=== PATIENT | male | born 1955 | race Caucasian/White ===

== ENCOUNTER → 2016-07-30 | Outpatient (REF) | payer OTHER ==
[~2016-07-30] MED LIST: /AMLO25TA PO; /PANT40TA PO; /TAMS4CA PO; ALDA25TA PO; ASPI81TA85 PO; BUDE3CAP PO; DIPH25CA PO; HYDR12.55 PO; NEUR300C PO; PENT500C PO; PERC5TAB6 PO; PERCOCET PO; POTAGRA83 PO; TYLE325T5 PO; ZYLO300T PO; ZYLO300T4 PO; [UNRECOGNIZED DRUG - CODE] PO
== END ==
LOC: M LAB REF 11:27
PROVIDERS: ATTEND Internal Medicine Medical Oncology
DX: C18.0 Malignant neoplasm of cecum (principal); C78.4 Secondary malignant neoplasm of small intestine

== ENCOUNTER → 2017-03-06 | Outpatient (REF) | payer MEDICARE, MEDICAID ==
[~2017-03-06] MED LIST changes: +PERC5TAB12 PO; -PERC5TAB6 PO
== END ==
LOC: M LAB REF 12:46
PROVIDERS: ATTEND Internal Medicine Medical Oncology
DX: C18.0 Malignant neoplasm of cecum (principal)

== ENCOUNTER → 2017-03-19 | Outpatient (CLI) | payer MEDICARE, MEDICAID ==
--- NOTE | 2017-03-22 09:56 | REP ---
Whole body radionuclide PET CT scan: Studies performed for restaging of colon carcinoma. Comparison is the PET CT scan dated 01/31/2016. Whole-body scanning is performed from skull base to the upper thighs. Neck and supraclavicular areas: There are no hypermetabolic foci. Chest: There are no hypermetabolic foci. Abdomen, pelvis and upper thighs: There are no hypermetabolic foci. Impression: Negative whole-body PET CT scan. There are no hypermetabolic foci. This is unchanged from the prior study. The study is performed with 10 mCi of F 18 FDG. Signed by Joseph Barlow MD 03/22/2017 09:48 A
== END ==
LOC: M PLARAD 08:27
PROVIDERS: ATTEND Internal Medicine Medical Oncology
DX: C18.9 Malignant neoplasm of colon, unspecified (principal)
CPT/HCPCS: 78815; A9552

== ENCOUNTER → 2017-03-28 | Outpatient (REF) | payer MEDICARE, MEDICAID | LOC: M LAB REF 12:49 | PROVIDERS: ATTEND Internal Medicine Medical Oncology | DX: C18.0 Malignant neoplasm of cecum (principal) ==

== ENCOUNTER 2017-05-10 12:37 | Inpatient (IN) | payer MEDICARE, MEDICAID ==
[~2017-05-10] VITALS: Ht 165.1 cm; Wt 74.8 kg
[2017-05-10 15:11] LABS: BASO % 0.2 % (0.0-1.0); EOS % 0.2 % (0.0-3.0); IMMATURE GRANULOCYTE % 0.5 % (0-0); LYMPH % 10.6 % (24.0-44.0); MEAN CORPUSCULAR HEMOGLOBIN 30.2 pg (27.0-33.0); MEAN CORPUSCULAR HGB CONC 35.2 g/dl (32.0-36.5); MEAN CORPUSCULAR VOLUME 85.6 fl (80.0-96.0); MONO % 10.6 % (0.0-5.0); NEUTROPHILS # 7.4 10^3/uL (1.8-7.7); NEUTROPHILS % 77.9 % (36.0-66.0); PLATELET COUNT, AUTOMATED 255 10^3/uL (150-450); RED CELL DISTRIBUTION WIDTH 13.2 % (11.5-14.5); WHITE BLOOD COUNT 9.5 10^3/uL (4.0-10.0)
[2017-05-10 15:35] LABS: ALBUMIN/GLOBULIN RATIO 1.05 (1.00-1.93); BILIRUBIN,TOTAL 1.5 MG/DL (0.2-1.0); CALCIUM LEVEL 9.1 MG/DL (8.8-10.2); CREATININE FOR GFR 2.03 MG/DL (0.70-1.30); GLOMERULAR FILTRATION RATE 35.8 (>49); POTASSIUM SERUM 2.6 MEQ/L (3.5-5.1); TOTAL PROTEIN 7.8 GM/DL (6.4-8.2)
[2017-05-10 15:55] LABS: MAGNESIUM LEVEL 2.5 MG/DL (1.8-2.4)
[2017-05-10] MEDS ORDERED: KCL 10MEQ IN 100ML SWI (KRUN) 10 MEQ in APPROPRIATE DILUENT 1 EA IV ONE ×6 (16:00→23:00)
[2017-05-10] MEDS ORDERED: POTASSIUM CHLORIDE INJ 20 MEQ in D5W/LR 1,000 ML IV SCH (16:30)
[2017-05-10] MEDS ORDERED: GASTROGRAFIN SOLUTION 30ML (Q9963) PO ONE (17:10)
[2017-05-10] MEDS ORDERED: ALDA25TA PO (17:14)
[2017-05-10] MEDS ORDERED: GASTROGRAFIN SOLUTION 30ML PO ONE (17:40)
[2017-05-10] MEDS ORDERED: ONDANSETRON 4MG/2ML VIAL (J2405) IV PRN (17:45)
[2017-05-10] MEDS ORDERED: NS 1,000 ML IV SCH (18:00)
--- NOTE | 2017-05-10 18:39 | HPEPDOC ---
General Date of Admission May 10, 2017 at 16:40 Primary Care Physician: Maxim Orlando [facility] Attending Physician: CLOVIS SANTIAGO DO Chief Complaint The patient is a 61-year-old male admitted with a reason for visit of Acute Kidney Injury,Hyperkalemia. Source: Patient, RN notes reviewed, Old records Exam Limitations: No limitations Timing/Duration: Week(s) Associated Symptoms: Loss of appetite, Nausea History of Present Illness Mr. Almonte is a 61-year-old male who presents to [facility] Emergency Department with constipation. He is accompanied by his niece. 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 Patient reports two weeks of constipation. He states that prior to two weeks ago he was having regular bowel movements going a couple times a day. He feels that these symptoms actually started towards the end of the summer/early fall, but have been getting worse now to the point that he is unable to a have bowel movement at all. No diarrhea. He would occasionally have to strain to produce a bowel movement. His most recent bowel movement two weeks ago was hard, but without visible blood or mucous. He would also have crampy abdominal pain, located mostly in the left upper quadrant that he describes as a tightening with increased bowel sounds. The abdominal pain would subside with bowel movements. Over the last two weeks he has also been feeling quite nauseated, but without production of vomit. Has also noticed a ten pound weight loss over the last two weeks although he has has not be eating or drinking as much as usual. Patient is not currently on chemotherapy. He completed chemotherapy in 2016. No radiation. Emergency Department evaluation reveals acute kidney injury likely secondary to dehydration. Potassium is low at 2.6. Intravenous supplementation was provided. Imaging obtained revealed ileus vs. partial vs. small bowel obstruction. Official report is pending at time of H&P. Hospitalist service was consulted and patient was admitted for further medical management. Home Medications Scheduled Allopurinol (Zyloprim) 300 Mg Tab, 300 MG PO DAILY, (Reported) Hctz/Spironolactone (Spironolactone/Hydrochlor 25-25 mg) 1 Ea Tab, 1 EA PO DAILY , (Reported) Allergies Coded Allergies: No Known Drug Allergy (Verified Allergy, Unknown, 03/20/17) Past Medical History Medical History 1. Poorly differentiated mucinous adenocarcinoma with signet-ring cells morphology involving the small bowel, cecum, and appendix 2. Hypertension 3. Gout 4. Renal calculous 5. History of small bowel obstruction 6. Diverticulosis 7. Recto-sigmoid stricture 8. Crohn's disease Surgical History 1. Exploratory laparotomy 2. Lysis of adhesions 3. Ileocolic resection with ileocolonic anastomosis 4. Right IJ [id number] 5. Colonoscopy x2 Family History Father: , 58, pancreatic carcinoma Mother: , 74, Alzheimer's disease Siblings: - Brother: Alive, 57, alcoholic cirrhosis - Brother: Alive, 61, COPD, aneurysm - Sister: Alive, 50, unhealthy, "hypochondriac" Social History Lives independently. Single. No pets. 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 Has no children. Denies former or current use of tobacco, EtOH, or illicit drugs. No history. Has traveled to [place] and [place]. Review of Symptoms Constitutional: Reports: Weight Loss (10 pounds in 2 weeks), Denies: Chills, Fever, Night Sweats, Weakness Eyes: Reports: Vision change (Blurry vision noted over the last month) ENT: Denies: Head Aches, Dysphagia, Sinus Congestion, Post Nasal Drip, Sore Throat, Epistaxis Skin: Denies: Rash, Lesions, Bruising Pulmonary: Denies: Dyspnea, Cough, Pleuritic Chest Pain Cardiovascular: Denies: Chest Pain, Palpitations, Orthopnea, Paroxysmal Noc. Dyspnea, Edema, Lt Headedness Gastrointestinal: Reports: Nausea, Abdominal Pain (LUQ, tightness, with hyperactive bowel sounds), Constipation, Denies: Vomiting, Diarrhea, Melena, Hematochezia Genitourinary: Denies: Dysuria, Frequency, Incontinence, Hematuria, Retention Hematologic: Denies: Bruising, Petecchia, Purpura, Enlarged Lymph Nodes Endocrine: Denies: Polydipsia, Polyphagia, Polyuria Musculoskeletal: Reports: Back Pain (Occasionally), Denies: Neck Pain, Joint Pain, Muscle Pain Neurological: Denies: Weakness, Numbness Physical Examination General Exam: Positive: Alert, Cooperative, No Acute Distress Eye Exam: Positive: PERRLA, Conjunctiva & lids normal, EOMI, Negative: Sclera icteric, Ptosis ENT Exam: Positive: Atraumatic, Mucous membr. moist/pink, Pharynx Normal, Tongue Midline, Negative: Pharyngeal Edema, Nares Patent Neck Exam: Positive: Supple, +2 carotid pulse wo bruit, Negative: JVD, thyromegaly, Lymphadenopathy Chest Exam: Positive: Clear to auscultation, Normal air movement Heart Exam: Positive: Rate Normal, Regular Rhythm, Normal S1, Normal S2, Negative: Gallops, Murmurs, Rubs Abdomen Exam: Positive: BS Hyperactive (LUQ), Soft, Negative: Hepatospenomegaly, Mass, Hernia Extremity Exam: Positive: Normal pulses, Negative: Clubbing, Cyanosis, Edema, Tenderness, Swelling Skin Exam: Negative: Rash Neuro Exam: Positive: Normal Speech, Cranial Nerves 3-12 NL Psych Exam: Positive: Oriented x 3 Other physical findings Abdominal x-ray IMPRESSION: Official report pending Vital Signs Vital Signs Date Time Temp Pulse Resp B/P (MAP) Pulse Ox O2 Delivery O2 Flow Rate FiO2 05/10/17 17:26 116/89 (98) 05/10/17 17:22 76 96 05/10/17 12:37 97.6 16 Room Air Height (in): 65 Weight (kg): 74.5 BMI (kg): 27.3 Laboratory Data Labs 24H Laboratory Tests 2 05/10/17 14:08: Urine Appearance HAZY, Urine Color NANCY, Urine pH 5.0, Urine Specific Richards 1.023, Urine Protein 1+H, Urine Glucose (UA) NEGATIVE, Urine Ketones NEGATIVE, Urine Urobilinogen 2.0H, Urine Bilirubin NEGATIVE, Urine Leukocyte Esterase NEGATIVE, Urine Blood NEGATIVE, Urine Nitrite NEGATIVE, Urine WBC (Auto) 4H, Urine RBC (Auto) 1, Urine Hyaline Casts (Auto) 4, Urine Bacteria (Auto) NEGATIVE , Urine Squamous Epithelial Cells 0, Urine Mucus (Auto) SMALL, Urine Sperm (Auto ) SMALLH 05/10/17 15:05: Immature Granulocyte % (Auto) 0.5H, White Blood Count 9.5, Red Blood Count 5.90 , Hemoglobin 17.8, Hematocrit 50.5, Mean Corpuscular Volume 85.6, Mean Corpuscular Hemoglobin 30.2, Mean Corpuscular Hemoglobin Concent 35.2, Red Cell Distribution Width 13.2, Platelet Count 255, Neutrophils (%) (Auto) 77.9H, Lymphocytes (%) (Auto) 10.6L, Monocytes (%) (Auto) 10.6H, Eosinophils (%) (Auto ) 0.2, Basophils (%) (Auto) 0.2, Neutrophils # (Auto) 7.4, Lymphocytes # (Auto) 1.0L, Monocytes # (Auto) 1.0H, Eosinophils # (Auto) 0.0, Basophils # (Auto) 0.0 , Immature Granulocyte # (Auto) 0.1H, Nucleated Red Blood Cells % (auto) 0.0, Anion Gap 11, Glomerular Filtration Rate 35.8L, Blood Urea Nitrogen 37H, Creatinine 2.03H, Sodium Level 136, Potassium Level 2.6*L, Chloride Level 92L, Carbon Dioxide Level 33H, Calcium Level 9.1, Aspartate Amino Transf (AST/SGOT) 24, Alanine Aminotransferase (ALT/SGPT) 23, Alkaline Phosphatase 90, Total Bilirubin 1.5H, Total Protein 7.8, Albumin 4.0, Magnesium Level 2.5H, Albumin/ Globulin Ratio 1.05 CBC/BMP Laboratory Tests 05/10/17 15:05 Red Blood Count 5.90, Mean Corpuscular Volume 85.6, Mean Corpuscular Hemoglobin 30.2, Mean Corpuscular Hemoglobin Concent 35.2, Red Cell Distribution Width 13.2 , Neutrophils (%) (Auto) 77.9 H, Lymphocytes (%) (Auto) 10.6 L, Monocytes (%) ( Auto) 10.6 H, Eosinophils (%) (Auto) 0.2, Basophils (%) (Auto) 0.2, Neutrophils # (Auto) 7.4, Lymphocytes # (Auto) 1.0 L, Monocytes # (Auto) 1.0 H, Eosinophils # (Auto) 0.0, Basophils # (Auto) 0.0, Calcium Level 9.1, Aspartate Amino Transf (AST/SGOT) 24, Alanine Aminotransferase (ALT/SGPT) 23, Alkaline Phosphatase 90, Total Bilirubin 1.5 H, Total Protein 7.8, Albumin 4.0 Assessment/Plan Attending Note: I have independently examined this patient and all aspects of the exam and treatment decisions have been discussed with the resident. A member of the hospitalist staff will continue to follow this patient through discharge. Plan / VTE VTE Prophylaxis Ordered?: Yes (TEDs, sequentials, knee high compression) Plan Plan 1. Constipation: Patient has been unable to have a bowel movement in two weeks with associated weight loss. Has a history of small bowel adenocarcinoma. Chemotherapy completed in 2016. Never received radiation. Recent colonoscopy on 03/25/17 was completed with a pediatric colonoscope due to a recto-sigmoid stricture. Recommended obtaining barium enema. Unable to complete due to facility restrictions. Obtaining CT abdomen and pelvis with oral contrast only due to acute renal failure. Consulted general surgery. NPO. Morphine, as needed for pain. Zofran for nausea. Mechanical DVT prophylaxis only at this time as patient may go for surgery. Could consider initiating pharmacological DVT prophylaxis if patient not going for surgery. 2. Hypokalemia: Obtain EKG. Admit to medical-surgical unit with telemetry monitoring. Replete potassium. Patient's nausea and weakness could be manifestations of hypokalemia. Monitor BMP. 3. Acute renal failure: Likely as a result of decreased oral intake or as a result of hypokalemia. Providing NS @100mLs/hr. 4. Hypertension: Continue patient's HCTZ and Spironolactone. Blood pressure is stable at the present time. 5. Gout: Holding Allopurinol in light of acute renal failure. Could consider restarting once renal function improves. Disposition Admit: Medical-surgical unit with telemetry Anticipated hospitalization: > 2 nights Attending: Dr. Crow Mounting Machine Operator: Dr. Morin, general surgery IVF: Initiate (NS @100mLs/hr) Diet: Make NPO Activity: Continue Current (Activity as tolerated) Diagnostics: Check Labs, Repeat Labs in AM, CT (Abdomen and pelvis with oral contrast) Anticipated Discharge: Home DEA CONTRERAS DO May 10, 2017 18:39 CLOVIS SANTIAGO DO May 20, 2017 18:01
[2017-05-10 18:46] LABS: INR 1.22
--- NOTE | 2017-05-10 20:00 | REPUSA ---
CT of the abdomen and pelvis without contrast Clinical statement: Pain. Technique: Multiple axial CT images were obtained from the base of the lungs to the floor of the pelv is utilizing 5 mm axial slices without administration of contrast. Coronal and sagittal reconstructio ns were also obtained. Comparison: 04/02/2017. Findings: Chest: The visualized lung bases are clear. Abdomen: The kidneys are normal in size bilaterally. There is no evidence of hydronephrosis or nephro lithiasis. Several small low attenuation lesions are seen within the liver. The spleen, pancreas, gal lbladder and adrenal glands are unremarkable. The aorta demonstrates normal caliber and contour. Ther e is no abdominal lymphadenopathy. There is moderate amount of ascites in the perihepatic and perispl enic regions. Pelvis: There is moderate small bowel fluid distention noted, proximal to the site of narrowing in th e proximal ileum. This is located in the right anterior lower pelvis. Mild mesenteric inflammatory ch anges are seen at this site. There is mild amount of stool within the colon. The urinary bladder is w ithin normal limits. There is no pelvic lymphadenopathy or ascites. The other pelvic structures appea r unremarkable. Bones: There are no suspicious osseous abnormalities seen. Impression: 1. Moderate grade small bowel obstruction with site of narrowing demonstrated in the proximal ileum i n the right lower quadrant of the abdomen. Mild mesenteric inflammatory stranding is seen at the site . It is uncertain whether this is secondary to an acute inflammatory process or surgical changes from adhesions. Follow-up is recommended as clinically indicated. 2. No evidence of hydronephrosis or nephrolithiasis. 3. Small to moderate amount of ascites in the upper quadrants of the abdomen bilaterally. 4. Several simple cysts within the liver. ER charge nurse was notified of these findings at 7:55 PM on 05/10/2017.
[2017-05-10 20:05] VITALS: BP 132/82
[2017-05-10] MEDS: MORPHINE 2 MG/ML 1ML SYRINGE IV PRN (21:56)
[2017-05-10 22:27] LABS: ALBUMIN 3.6 GM/DL (3.2-5.2); CALCIUM LEVEL 8.7 MG/DL (8.8-10.2); CREATININE FOR GFR 1.5 MG/DL (0.70-1.30); GLOMERULAR FILTRATION RATE 50.8 (>49); PHOSPHORUS LEVEL 2.9 MG/DL (2.5-4.9); POTASSIUM SERUM 2.5 MEQ/L (3.5-5.1)
[2017-05-10] MEDS ORDERED: POTASSIUM CHLORIDE INJ 40 MEQ in NS 1,000 ML IV SCH (22:45)
[2017-05-10] MEDS ORDERED: POTASSIUM CHLORIDE 10 MEQ SR TABLET PO ONE (22:45)
[2017-05-11] MEDS ORDERED: KCL 10MEQ IN 100ML SWI (KRUN) 10 MEQ in APPROPRIATE DILUENT 1 EA IV ONE ×4 (01:00)
[2017-05-11] MEDS: MORPHINE 2 MG/ML 1ML SYRINGE IV PRN ×3 (01:21→16:52)
[2017-05-11] MEDS: KCL 40MEQ in NS 1000ML 1,000 ML IV SCH ×2 (04:24→08:28)
[2017-05-11 04:38] LABS: BASO % 0.3 % (0.0-1.0); EOS % 0.3 % (0.0-3.0); IMMATURE GRANULOCYTE % 0.4 % (0-0); LYMPH # 0.9 10^3/uL (1.5-4.5); MEAN CORPUSCULAR HEMOGLOBIN 30.2 pg (27.0-33.0); MEAN CORPUSCULAR HGB CONC 35.5 g/dl (32.0-36.5); MONO # 0.9 10^3/uL (0.0-0.8); MONO % 11.6 % (0.0-5.0); NEUTROPHILS # 5.8 10^3/uL (1.8-7.7); NEUTROPHILS % 75.4 % (36.0-66.0); PLATELET COUNT, AUTOMATED 207 10^3/uL (150-450); RED CELL DISTRIBUTION WIDTH 13.2 % (11.5-14.5); WHITE BLOOD COUNT 7.7 10^3/uL (4.0-10.0)
[2017-05-11 04:51] LABS: CALCIUM LEVEL 8.8 MG/DL (8.8-10.2); CREATININE FOR GFR 1.48 MG/DL (0.70-1.30); GLOMERULAR FILTRATION RATE 51.6 (>49)
[2017-05-11 05:00] LABS: POTASSIUM SERUM 3.5 MEQ/L (3.5-5.1)
[2017-05-11 06:00] VITALS: BP 109/66
--- NOTE | 2017-05-11 06:56 | REP ---
REASON: History of small bowel obstruction. COMPARISON: 09/23/2014. Note is again made of multiple dilated gas filled small bowel loops particularly in the left upper quadrant. There is gas and stool in the rectum. IMPRESSION: Ileus versus partial SBO. Correlate clinically. Signed by Eduar Qureshi DO 05/11/2017 08:55 A
[2017-05-11 08:27] VITALS: BP 123/78
[2017-05-11] MEDS: amLODIPine 10 MG TAB PO SCH (08:28)
[2017-05-11] MEDS ORDERED: ALLOPURINOL 300 MG TAB PO SCH (09:00)
[2017-05-11] MEDS ORDERED: hydroCHLOROthiazide 25 MG TAB PO SCH (09:00)
[2017-05-11] MEDS ORDERED: SPIRONOLACTONE 25 MG TAB PO SCH (09:00)
--- NOTE | 2017-05-11 10:20 | IPNPDOC ---
Subjective Date Seen The patient was seen on 05/11/17. Subjective Chief Complaint/HPI The patient is a 61-year-old male admitted with a reason for visit of Acute Kidney Injury,Hyperkalemia. Events since last encounter Says that abdominal pain is a little better. Still has nausea. No bowel movements for 2 weeks , Has not passed gas yet . No fever or chills. No chest pain or SOB . Objective Physical Examination General Exam: Positive: Alert, Cooperative, No Acute Distress Eye Exam: Positive: PERRLA, Conjunctiva & lids normal, EOMI, Negative: Sclera icteric, Ptosis ENT Exam: Positive: Atraumatic, Mucous membr. moist/pink, Pharynx Normal, Tongue Midline, Negative: Pharyngeal Edema, Nares Patent Neck Exam: Positive: Supple, +2 carotid pulse wo bruit, Negative: JVD, thyromegaly, Lymphadenopathy Chest Exam: Positive: Clear to auscultation, Normal air movement Heart Exam: Positive: Rate Normal, Regular Rhythm, Normal S1, Normal S2, Negative: Gallops, Murmurs, Rubs Abdomen Exam: Positive: BS Hyperactive (LUQ), Soft, Negative: Hepatospenomegaly, Mass, Hernia Extremity Exam: Positive: Normal pulses, Negative: Clubbing, Cyanosis, Edema, Tenderness, Swelling Skin Exam: Negative: Rash Neuro Exam: Positive: Normal Speech, Cranial Nerves 3-12 NL Psych Exam: Positive: Oriented x 3 Assessment /Plan Problems (1) Small bowel obstruction Status: Acute Problem Text: will continue the patient NPO , IVF. Surgery is following. (2) TON (acute kidney injury) Status: Acute Response to Treatment: Improving Problem Text: Due to poor oral intake . improving with IVF. (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 Had surgery followed by chemotherapy finished in 2016. (4) Stricture of colon Status: Acute Problem Text: Tight stricture was found in the rectosigmoid junction in mar 2017 during colonoscopy . Chance of this being a malignant stricture is high. Work up was being done as any outpatient. (5) Hypertension Status: Chronic (6) Nephrolithiasis Status: Chronic (7) Gout Status: Chronic Response to Treatment: Stable (8) Crohn disease Status: Chronic Response to Treatment: Stable Plan/VTE VTE Prophylaxis Ordered?: Yes (TEDs, sequentials, knee high compression) Plan IVF: Initiate (NS @100mLs/hr) Diet: Make NPO Activity: Continue Current (Activity as tolerated) Diagnostics: Check Labs, Repeat Labs in AM, CT (Abdomen and pelvis with oral contrast) Anticipated Discharge: Home VS, I&O, 24H, Araceli Vital Signs/I&O Vital Signs Date Time Temp Pulse Resp B/P (MAP) Pulse Ox O2 Delivery O2 Flow Rate FiO2 05/11/17 08:28 72 123/78 05/11/17 06:00 97.2 18 95 Room Air Laboratory Data 24H LABS Laboratory Tests 2 05/10/17 14:08: Urine Appearance HAZY, Urine Color NANCY, Urine pH 5.0, Urine Specific [place] 1.023, Urine Protein 1+H, Urine Glucose (UA) NEGATIVE, Urine Ketones NEGATIVE, Urine Urobilinogen 2.0H, Urine Bilirubin NEGATIVE, Urine Leukocyte Esterase NEGATIVE, Urine Blood NEGATIVE, Urine Nitrite NEGATIVE, Urine WBC (Auto) 4H, Urine RBC (Auto) 1, Urine Hyaline Casts (Auto) 4, Urine Bacteria (Auto) NEGATIVE , Urine Squamous Epithelial Cells 0, Urine Mucus (Auto) SMALL, Urine Sperm (Auto ) SMALLH 05/10/17 15:05: Immature Granulocyte % (Auto) 0.5H, White Blood Count 9.5, Red Blood Count 5.90 , Hemoglobin 17.8, Hematocrit 50.5, Mean Corpuscular Volume 85.6, Mean Corpuscular Hemoglobin 30.2, Mean Corpuscular Hemoglobin Concent 35.2, Red Cell Distribution Width 13.2, Platelet Count 255, Neutrophils (%) (Auto) 77.9H, Lymphocytes (%) (Auto) 10.6L, Monocytes (%) (Auto) 10.6H, Eosinophils (%) (Auto ) 0.2, Basophils (%) (Auto) 0.2, Neutrophils # (Auto) 7.4, Lymphocytes # (Auto) 1.0L, Monocytes # (Auto) 1.0H, Eosinophils # (Auto) 0.0, Basophils # (Auto) 0.0 , Immature Granulocyte # (Auto) 0.1H, Nucleated Red Blood Cells % (auto) 0.0, Anion Gap 11, Glomerular Filtration Rate 35.8L, Blood Urea Nitrogen 37H, Creatinine 2.03H, Sodium Level 136, Potassium Level 2.6*L, Chloride Level 92L, Carbon Dioxide Level 33H, Calcium Level 9.1, Aspartate Amino Transf (AST/SGOT) 24, Alanine Aminotransferase (ALT/SGPT) 23, Alkaline Phosphatase 90, Total Bilirubin 1.5H, Total Protein 7.8, Albumin 4.0, Magnesium Level 2.5H, Albumin/ Globulin Ratio 1.05 05/10/17 18:27: Prothrombin Time 15.7H, Prothromb Time International Ratio 1.22 05/10/17 21:49: Anion Gap 11, Glomerular Filtration Rate 50.8, Blood Urea Nitrogen 35H, Creatinine 1.50H, Sodium Level 137, Potassium Level 2.5*L, Chloride Level 96L, Carbon Dioxide Level 30, Calcium Level 8.7L, Albumin 3.6, Phosphorus Level 2.9 05/11/17 04:26: Immature Granulocyte % (Auto) 0.4H, White Blood Count 7.7, Red Blood Count 5.47 , Hemoglobin 16.5, Hematocrit 46.5, Mean Corpuscular Volume 85.0, Mean Corpuscular Hemoglobin 30.2, Mean Corpuscular Hemoglobin Concent 35.5, Red Cell Distribution Width 13.2, Platelet Count 207, Neutrophils (%) (Auto) 75.4H, Lymphocytes (%) (Auto) 12.0L, Monocytes (%) (Auto) 11.6H, Eosinophils (%) (Auto ) 0.3, Basophils (%) (Auto) 0.3, Neutrophils # (Auto) 5.8, Lymphocytes # (Auto) 0.9L, Monocytes # (Auto) 0.9H, Eosinophils # (Auto) 0.0, Basophils # (Auto) 0.0 , Immature Granulocyte # (Auto) 0.0, Nucleated Red Blood Cells % (auto) 0.0, Anion Gap 10, Glomerular Filtration Rate 51.6, Blood Urea Nitrogen 35H, Creatinine 1.48H, Sodium Level 137, Potassium Level 3.5#, Chloride Level 96L, Carbon Dioxide Level 31, Calcium Level 8.8 CBC/BMP Laboratory Tests 05/10/17 15:05 Red Blood Count 5.90, Mean Corpuscular Volume 85.6, Mean Corpuscular Hemoglobin 30.2, Mean Corpuscular Hemoglobin Concent 35.2, Red Cell Distribution Width 13.2 , Neutrophils (%) (Auto) 77.9 H, Lymphocytes (%) (Auto) 10.6 L, Monocytes (%) ( Auto) 10.6 H, Eosinophils (%) (Auto) 0.2, Basophils (%) (Auto) 0.2, Neutrophils # (Auto) 7.4, Lymphocytes # (Auto) 1.0 L, Monocytes # (Auto) 1.0 H, Eosinophils # (Auto) 0.0, Basophils # (Auto) 0.0, Calcium Level 9.1, Aspartate Amino Transf (AST/SGOT) 24, Alanine Aminotransferase (ALT/SGPT) 23, Alkaline Phosphatase 90, Total Bilirubin 1.5 H, Total Protein 7.8, Albumin 4.0 05/10/17 21:49 Anion Gap 11 05/11/17 04:26 Red Blood Count 5.47, Mean Corpuscular Volume 85.0, Mean Corpuscular Hemoglobin 30.2, Mean Corpuscular Hemoglobin Concent 35.5, Red Cell Distribution Width 13.2 , Neutrophils (%) (Auto) 75.4 H, Lymphocytes (%) (Auto) 12.0 L, Monocytes (%) ( Auto) 11.6 H, Eosinophils (%) (Auto) 0.3, Basophils (%) (Auto) 0.3, Neutrophils # (Auto) 5.8, Lymphocytes # (Auto) 0.9 L, Monocytes # (Auto) 0.9 H, Eosinophils # (Auto) 0.0, Basophils # (Auto) 0.0, Calcium Level 8.8 BEVERLY CORLEY MD May 11, 2017 10:20
[2017-05-11 14:00] VITALS: BP 114/95
[2017-05-11 22:00] VITALS: BP 117/67
[2017-05-12] MEDS: KCL 40MEQ in NS 1000ML 1,000 ML IV SCH ×3 (00:08→20:25)
[2017-05-12] MEDS: MORPHINE 2 MG/ML 1ML SYRINGE IV PRN ×3 (01:33→18:02)
[2017-05-12 06:00] VITALS: BP 124/82
[2017-05-12 06:04] LABS: BASO % 0.3 % (0.0-1.0); EOS % 0.6 % (0.0-3.0); IMMATURE GRANULOCYTE % 0.7 % (0-0); LYMPH # 0.8 10^3/uL (1.5-4.5); LYMPH % 11.5 % (24.0-44.0); MEAN CORPUSCULAR HEMOGLOBIN 29.9 pg (27.0-33.0); MEAN CORPUSCULAR HGB CONC 34.3 g/dl (32.0-36.5); MEAN CORPUSCULAR VOLUME 87.2 fl (80.0-96.0); MONO # 0.6 10^3/uL (0.0-0.8); MONO % 8.3 % (0.0-5.0); NEUTROPHILS # 5.6 10^3/uL (1.8-7.7); NEUTROPHILS % 78.6 % (36.0-66.0); PLATELET COUNT, AUTOMATED 174 10^3/uL (150-450); RED CELL DISTRIBUTION WIDTH 13.4 % (11.5-14.5); WHITE BLOOD COUNT 7.1 10^3/uL (4.0-10.0)
[2017-05-12 06:18] LABS: ANION GAP 10 MEQ/L (8-16); BLOOD UREA NITROGEN 28 MG/DL (7-18); CALCIUM LEVEL 8.7 MG/DL (8.8-10.2); CARBON DIOXIDE LEVEL 30 MEQ/L (21-32); CHLORIDE LEVEL 103 MEQ/L (98-107); GLOMERULAR FILTRATION RATE > 60.0 (>49); GLUCOSE, FASTING 87 MG/DL (80-110); POTASSIUM SERUM 4.2 MEQ/L (3.5-5.1); SODIUM LEVEL 143 MEQ/L (136-145)
[2017-05-12] MEDS: amLODIPine 10 MG TAB PO SCH (07:54)
[2017-05-12] MEDS ORDERED: FLEET OIL RETENTION ENEMA PR ONE (09:00)
[2017-05-12] MEDS ORDERED: INFLUENZA QUADRIVALENT PF VACCINE 0.5ML SYRINGE (90686) IM ONE (09:00)
--- NOTE | 2017-05-12 10:38 | CR ---
DATE OF CONSULTATION: 05/11/2017 REASON FOR CONSULTATION: Intestinal obstruction. 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 At the time of the surgery, the small bowel was peeled off of the sigmoid colon where it was loosely adherent. There were positive surgical margins for carcinoma and two mesenteric lymph nodes contained metastatic adenocarcinoma as well. It was noted that there were multiple tumor nodules and deposits in the mesenteric fat. The patient was seen by medical oncology and underwent chemotherapy. A colonoscopy on September 12, 2015 showed a well-healed end-to-end ileocolonic anastomosis with some diverticulosis noted in the sigmoid colon. He has continued followup with medical oncology. Late this summer into the fall, he was noted to have a rise in his CEA level. He underwent a PET scan on March 19, 2017, which was interpreted by radiology as showing no hypermetabolic foci. My review of the study, however, suggested the possibility of some uptake in the region of the sigmoid colon. He described some changes in his bowel habits with some crampy lower abdominal discomfort. A colonoscopy was attempted on 03/25/2017, but the scope reached only to the sigmoid colon where he was noted to have a stricture. It was impossible to advance the scope beyond this point. I had planned to obtain a barium enema but ran into some scheduling difficulties. The patient had a CT scan of the abdomen and pelvis on April. This was interpreted by radiology as showing some loculated fluid in the midline of the pelvis adjacent to the sigmoid colon. On my review, I thought there was a suggestion of some narrowing of the sigmoid colon and I found the findings very suspicious for a recurrence of his mucinous carcinoma. I had spoken with the patient about this. He was to see a medical oncologist in [place] that he had seen after his initial resection but could not make it to the appointment on May 07, 2017. The patient has noticed some abdominal pain over the last couple weeks with some nausea but no vomiting. He noted basically a cessation of bowel movements. He does report that his last bowel movement was about 2 weeks ago. He has some sensation of needing to go but has been unable to. He reports a 10 pounds weight loss over the last 2 weeks. He has not been eating or drinking well. He presented to the emergency department on May. He was found to have an elevation of his creatinine with some hypokalemia. He was admitted by the hospitalist service for management of his various medical issues. A CT scan of the abdomen and pelvis was obtained. The radiologist reported some moderate distension of the small bowel with a narrowing in the proximal ileum. He reported some mesenteric inflammatory changes at that site. Some limited amounts of ascites were noted. I was asked to evaluate the patient regarding his apparent intestinal obstruction. MEDICATIONS: The patient's only scheduled medications are allopurinol 300 mg by mouth daily and hydrochlorothiazide/spironolactone 25/25 tablets by mouth daily. ALLERGIES: The patient denies any known drug allergies. PAST MEDICAL HISTORY: Medical history is significant for hypertension and gout. He has a history of renal stones in the past. 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 PAST SURGICAL HISTORY: Patient has undergone an exploratory laparotomy with resection of his terminal ileum with anastomosis. He had a right internal jugular [id number] placement and has had a couple of colonoscopies. FAMILY HISTORY: The patient's father apparently had pancreatic cancer and his mother had Alzheimer's disease. SOCIAL HISTORY: The patient is single. He denies any tobacco use or significant alcohol intake. REVIEW OF SYSTEMS: He has had no history of seizure or stroke. He denies any history of deep venous thrombosis (DVT) or pulmonary embolus. He has no endocrine problems. He denies any chest pain, palpitations or shortness of breath. He denies any cough or wheezing. He denies any dysuria or hematuria. There are no bone or joint problems. PHYSICAL EXAMINATION: Physical exam reveals a pleasant man lying quietly on the hospital bed. His vital signs at the time of his examination showed a temperature of 97.6, pulse 71, respirations 18 and blood pressure of 132/82. Skin is warm and dry. Sclerae are anicteric. Mucous membranes are moist. Neck is supple without mass or bruit. Heart exam shows a regular rate and rhythm. The lungs are clear. The abdomen is perhaps mildly distended. He has a well-healed lower abdominal scar. There are some bowel sounds present. There is no significant tenderness to palpation. There is no evident hernia. Extremities reveal no peripheral edema and he has palpable radial and pedal pulses. LABORATORY DATA: His laboratory studies at the time of admission showed a white count of 9.5 with a hemoglobin of 18, hematocrit of 50 and platelet count of 255,000. His differential count showed 78% neutrophils, 11% lymphocytes and 11% monocytes. His chemistry profile showed a sodium of 136, potassium 2.6, chloride 92, CO2 of 33, BUN of 37, creatinine of 2.0 and glucose of 109. Total bilirubin is 1.5 and his other liver function tests are normal. His most recent CEA level was 7.4 on March 28. Urinalysis showed a specific gravity of 1.023 with pH of 5 and no signs of a urinary tract infection. The CT scan report is as noted. I reviewed his images and there remains a suggestion of some narrowing in the sigmoid colon. He has some free fluid in the pelvis and also a smaller amount in the upper abdomen. There is some inflammatory appearing change in the right lower quadrant. There is some mild to moderate dilation of the small bowel which appears to relate to some narrowing in the terminal ileal region. IMPRESSION: Probable recurrent mucinous adenocarcinoma with resulting obstruction. RECOMMENDATIONS: At this point, I would recommend keeping the patient nothing by mouth and on some maintenance fluid. His electrolyte problems should be addressed. If he is unable to tolerate any liquids then surgery may be warranted. I would anticipate this would require an open exploration possibly with resection. Unfortunately, if this represents a recurrence of his malignancy, then this will not be curable and his surgery would be to palliate his obstruction. I have ordered a new CEA level to see if this has changed significantly. I will monitor his progress over the next few days and then determine if surgical intervention would be warranted. PAU
--- NOTE | 2017-05-12 11:21 | IPN ---
DATE: 05/11/2017 Patient was admitted with evidence of a bowel obstruction and a history of no bowel movements in two weeks. He reports that he feels better today. He has still not had any bowel movements. He has been taking a few ice chips today. He denies any nausea at the moment. VITAL SIGNS: Patient is afebrile with a pulse in the 70s and a good blood pressure. Intake and output show that he has a an excellent urine output. PHYSICAL EXAMINATION: The patient is lying quietly in the bed in no apparent distress. Heart exam shows a regular rhythm. The abdomen is perhaps mildly distended with some bowel sounds present, but the abdomen is soft. Laboratory studies this morning showed a white count 8, hemoglobin 16, hematocrit 46, and a platelet count of 207,000. Chemistry profile shows normal electrolytes with the exception of a chloride of 96. BUN is down to 35 and his creatinine is 1.48. IMPRESSION: 1. Intestinal obstruction. My review suggests that he probably has recurrent cancer in his sigmoid and possibly also in his distal ileum at the point of his anastomosis. I think it is likely that this will require surgery for resolution. I have not yet addressed this with him at any length. This would likely be a palliative procedure as it is likely that his cancer will not be curable surgically or by chemotherapy. I will see how he is feeling tomorrow and then we can discuss how best to proceed. PAU
--- NOTE | 2017-05-12 12:29 | IPNPDOC ---
Subjective Date Seen The patient was seen on 05/12/17. Subjective Chief Complaint/HPI The patient is a 61-year-old male admitted with a reason for visit of Acute Kidney Injury,Hyperkalemia. Objective Physical Examination General Exam: Positive: Alert, Cooperative, No Acute Distress Eye Exam: Positive: PERRLA, Conjunctiva & lids normal, EOMI, Negative: Sclera icteric, Ptosis ENT Exam: Positive: Atraumatic, Mucous membr. moist/pink, Pharynx Normal, Tongue Midline, Negative: Pharyngeal Edema, Nares Patent Neck Exam: Positive: Supple, +2 carotid pulse wo bruit, Negative: JVD, thyromegaly, Lymphadenopathy Chest Exam: Positive: Clear to auscultation, Normal air movement Heart Exam: Positive: Rate Normal, Regular Rhythm, Normal S1, Normal S2, Negative: Gallops, Murmurs, Rubs Abdomen Exam: Positive: BS Hyperactive (LUQ), Soft, Negative: Hepatospenomegaly, Mass, Hernia Extremity Exam: Positive: Normal pulses, Negative: Clubbing, Cyanosis, Edema, Tenderness, Swelling Skin Exam: Negative: Rash Neuro Exam: Positive: Normal Speech, Cranial Nerves 3-12 NL Psych Exam: Positive: Oriented x 3 Assessment /Plan Problems (1) Small bowel obstruction Status: Acute Problem Text: Most probably it is a recurrence of cancer and will probably need surgery for resolution. will continue the patient IVF. Diet as per surgery Surgery is following. (2) TON (acute kidney injury) Status: Acute Response to Treatment: Improving Problem Text: Due to poor oral intake . improving with IVF. (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 Had surgery followed by chemotherapy finished in 2015. (4) Stricture of colon Status: Acute Problem Text: Tight stricture was found in the rectosigmoid junction in mar 2017 during colonoscopy . Chance of this being a malignant stricture is high. Work up was being done as any outpatient. (5) Hypertension Status: Chronic (6) Nephrolithiasis Status: Chronic (7) Gout Status: Chronic Response to Treatment: Stable (8) Crohn disease Status: Chronic Response to Treatment: Stable Plan/VTE VTE Prophylaxis Ordered?: Yes (TEDs, sequentials, knee high compression) Plan IVF: Initiate (NS @100mLs/hr) Diet: Make NPO Activity: Continue Current (Activity as tolerated) Diagnostics: Check Labs, Repeat Labs in AM, CT (Abdomen and pelvis with oral contrast) Anticipated Discharge: Home VS, I&O, 24H, Araceli Vital Signs/I&O Vital Signs Date Time Temp Pulse Resp B/P (MAP) Pulse Ox O2 Delivery O2 Flow Rate FiO2 05/12/17 09:13 Room Air 05/12/17 07:54 72 126/80 05/12/17 06:00 97.1 18 98 I&O- Last 24 Hours up to 6 AM 05/13/17 06:00 Intake Total 600 ml Output Total 150 ml Balance 450 ml Laboratory Data 24H LABS Laboratory Tests 2 05/12/17 05:20: Immature Granulocyte % (Auto) 0.7H, White Blood Count 7.1, Red Blood Count 5.01 , Hemoglobin 15.0, Hematocrit 43.7, Mean Corpuscular Volume 87.2, Mean Corpuscular Hemoglobin 29.9, Mean Corpuscular Hemoglobin Concent 34.3, Red Cell Distribution Width 13.4, Platelet Count 174, Neutrophils (%) (Auto) 78.6H, Lymphocytes (%) (Auto) 11.5L, Monocytes (%) (Auto) 8.3H, Eosinophils (%) (Auto) 0.6, Basophils (%) (Auto) 0.3, Neutrophils # (Auto) 5.6, Lymphocytes # (Auto) 0.8L, Monocytes # (Auto) 0.6, Eosinophils # (Auto) 0.0, Basophils # (Auto) 0.0, Immature Granulocyte # (Auto) 0.1H, Nucleated Red Blood Cells % (auto) 0.0, Anion Gap 10, Glomerular Filtration Rate > 60.0, Blood Urea Nitrogen 28H, Creatinine 1.10, Sodium Level 143, Potassium Level 4.2, Chloride Level 103, Carbon Dioxide Level 30, Calcium Level 8.7L CBC/BMP Laboratory Tests 05/12/17 05:20 Red Blood Count 5.01, Mean Corpuscular Volume 87.2, Mean Corpuscular Hemoglobin 29.9, Mean Corpuscular Hemoglobin Concent 34.3, Red Cell Distribution Width 13.4 , Neutrophils (%) (Auto) 78.6 H, Lymphocytes (%) (Auto) 11.5 L, Monocytes (%) ( Auto) 8.3 H, Eosinophils (%) (Auto) 0.6, Basophils (%) (Auto) 0.3, Neutrophils # (Auto) 5.6, Lymphocytes # (Auto) 0.8 L, Monocytes # (Auto) 0.6, Eosinophils # (Auto) 0.0, Basophils # (Auto) 0.0, Calcium Level 8.7 L BEVERLY CORLEY MD May 12, 2017 12:29
--- NOTE | 2017-05-12 13:56 | REP ---
KUB: Two views presented. HISTORY: Bowel obstruction. COMPARISON STUDY: May 10, 2017. FINDINGS: Two views of the abdomen demonstrate persistent, and indeed progressive air and fluid distended loops of small bowel in the left mid and left upper abdomen. There is a paucity of distal bowel gas. There is an anastomotic suture line in the right lower quadrant. There is some stool and CT contrast in the right colon. There is less stool in the rectum. IMPRESSION: Persistent small bowel obstruction pattern with progressive moderate air and fluid distension of small bowel loops. There is some mural thickening in these loops. The involved loops measure up to 6.9 cm in transverse dimension. Surgical sutures in the right lower quadrant. Paucity of distal gas. Signed by Connor Gordon MD 05/12/2017 03:04 P
[2017-05-12 14:00] VITALS: BP 114/71
--- NOTE | 2017-05-12 16:27 | IPN ---
DATE: 05/12/2017 The patient started a few ice chips and popsicles last evening. He denies any nausea or vomiting or abdominal pain today. He still reports no stool. He may have passed a small amount of flatus. Vital signs show that he is afebrile with stable vital signs. Intake and output : He had 2400 in yesterday with 800 out. Physical examination reveals a pleasant man lying quietly on the hospital bed in no distress. Skin is warm and dry. Heart exam shows a regular rate and rhythm. The lungs are clear. The abdomen is mildly full, but soft. Laboratory studies show a white count of 7 with a hemoglobin of 15, hematocrit of 44 and his differential count shows 79% neutrophils. Chemistry profile shows normal electrolytes with a BUN down to 28 now and a creatinine normal at 1.10. Carcinoembryonic antigen (CEA) from this morning is pending. KUB from this morning shows dilated loops of small bowel in the left mid and upper abdomen. There is some CT contrast in the right colon and it was noted that there seemed to be less stool in the rectum. IMPRESSION: Persistent small bowel obstruction, likely secondary to recurrent cancer. PLAN: The patient will remain on some clear liquids, but he was warned that he should stop these if he feels more full or uncomfortable. I will have him get a Fleet oil retention enema because he did have some stool in the rectum on his CT scan and has not passed this and this may be the cause for some of his tenesmus. We will see how he responds. I anticipate he will require surgery during this hospital stay. PAU
[2017-05-12 22:00] VITALS: BP 139/84
--- NOTE | 2017-05-13 01:18 | ECGEPIP ---
Stationary ECG Study [facility] Test Date: 2017-05-10 Pat Name: INES CUNNINGHAM Department: Room: B3799-97 Gender: M Recharger: : [id number] Requested By: DINAH SCHERER Order Number: [id number] Reading MD: Janes De La Paz Measurements Intervals [place] Rate: 72 P: 19 NE: 166 QRS: 10 QRSD: 95 T: 44 QT: 379 QTc: 416 Interpretive Statements SINUS RHYTHM Borderline low-voltage QRS complexes in the limb leads Q-wave noted in lead 3 Compared to the last tracings Electronically Signed On 05-13-2017 1:18:04 EST by Janes De La Paz
[2017-05-13 06:00] VITALS: BP 133/74
[2017-05-13 06:08] LABS: CARCINOEMBRYONIC ANTIGEN 10.7 NG/ML (<2.5)
[2017-05-13] MEDS: KCL 40MEQ in NS 1000ML 1,000 ML IV SCH (06:09)
[2017-05-13] MEDS: amLODIPine 10 MG TAB PO SCH (07:46)
[2017-05-13 08:14] LABS: MEAN CORPUSCULAR HEMOGLOBIN 30.2 pg (27.0-33.0); MEAN CORPUSCULAR HGB CONC 34.1 g/dl (32.0-36.5); MEAN CORPUSCULAR VOLUME 88.5 fl (80.0-96.0); PLATELET COUNT, AUTOMATED 118 10^3/uL (150-450); RED CELL DISTRIBUTION WIDTH 13.2 % (11.5-14.5); WHITE BLOOD COUNT 6.3 10^3/uL (4.0-10.0)
[2017-05-13 08:37] LABS: ANION GAP 8 MEQ/L (8-16); BLOOD UREA NITROGEN 15 MG/DL (7-18); CALCIUM LEVEL 8.5 MG/DL (8.8-10.2); CARBON DIOXIDE LEVEL 26 MEQ/L (21-32); CHLORIDE LEVEL 109 MEQ/L (98-107); CREATININE FOR GFR 1.12 MG/DL (0.70-1.30); GLOMERULAR FILTRATION RATE > 60.0 (>49); GLUCOSE, FASTING 110 MG/DL (80-110); MAGNESIUM LEVEL 1.8 MG/DL (1.8-2.4); POTASSIUM SERUM 4.5 MEQ/L (3.5-5.1); SODIUM LEVEL 143 MEQ/L (136-145)
[2017-05-13] MEDS: MORPHINE 2 MG/ML 1ML SYRINGE IV PRN ×3 (12:11→23:48)
[2017-05-13 14:00] VITALS: BP 144/88
--- NOTE | 2017-05-13 14:07 | IPNPDOC ---
Subjective Date Seen The patient was seen on 05/13/17. Subjective Chief Complaint/HPI The patient is a 61-year-old male admitted with a reason for visit of Acute Kidney Injury,Hyperkalemia. Events since last encounter Patient seen and examined at the bedside. States that he has been able to tolerate a liquid diet without any complaints of abdominal pain. Also notes that he has had multiple small sized/formed bowel movements since last night. Objective Physical Examination General Exam: Positive: Alert, Cooperative, No Acute Distress Eye Exam: Negative: Sclera icteric ENT Exam: Positive: Atraumatic, Mucous membr. moist/pink Neck Exam: Negative: JVD Chest Exam: Positive: Clear to auscultation, Normal air movement Heart Exam: Positive: Rate Normal, Regular Rhythm, Normal S1, Normal S2, Negative: Gallops, Murmurs, Rubs Abdomen Exam: Positive: BS Hyperactive (LUQ), Soft Extremity Exam: Negative: Tenderness, Swelling Skin Exam: Negative: Rash Psych Exam: Positive: Oriented x 3 Assessment /Plan Problems (1) Small bowel obstruction Status: Acute Response to Treatment: Improving Problem Text: Likely a recurrence of cancer and will possibly need surgery for resolution. Diet, Bowel regimen as per surgery. Patient is having small BMs, and passing flatus since last night Will follow up with surgical recommendations (2) TON (acute kidney injury) Status: Resolved Response to Treatment: Stable Problem Text: IVF discontinued Cont Liquid diet as ordered (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 Had surgery followed by chemotherapy finished in 2016. (4) Stricture of colon Status: Acute Problem Text: Tight stricture was found in the rectosigmoid junction in mar 2017 during colonoscopy . Chance of this being a malignant stricture is high. Work up was being done as any outpatient. (5) Hypertension Status: Chronic (6) Nephrolithiasis Status: Chronic (7) Gout Status: Chronic Response to Treatment: Stable (8) Crohn disease Status: Chronic Response to Treatment: Stable Plan/VTE VTE Prophylaxis Ordered?: Yes (TEDs, sequentials, knee high compression) VS, I&O, 24H, Fishbone Vital Signs/I&O Vital Signs Date Time Temp Pulse Resp B/P (MAP) Pulse Ox O2 Delivery O2 Flow Rate FiO2 05/13/17 12:21 18 Room Air 05/13/17 07:46 70 118/64 05/13/17 06:00 97.6 97 I&O- Last 24 Hours up to 6 AM 05/14/17 06:00 Intake Total 480 ml Output Total 425 ml Balance 55 ml Laboratory Data 24H LABS Laboratory Tests 2 05/13/17 08:02: Nucleated Red Blood Cells % (auto) 0.0, Anion Gap 8, Glomerular Filtration Rate > 60.0, Blood Urea Nitrogen 15, Creatinine 1.12, Sodium Level 143, Potassium Level 4.5, Chloride Level 109H, Carbon Dioxide Level 26, Calcium Level 8.5L, Magnesium Level 1.8 CBC/BMP Laboratory Tests 05/13/17 08:02 Red Blood Count 4.77, Mean Corpuscular Volume 88.5, Mean Corpuscular Hemoglobin 30.2, Mean Corpuscular Hemoglobin Concent 34.1, Red Cell Distribution Width 13.2 , Calcium Level 8.5 L ENRIQUE MANSFIELD MD May 13, 2017 14:07
[2017-05-13 22:00] VITALS: BP 139/78
[2017-05-14 06:00] VITALS: BP 118/67
[2017-05-14 07:11] LABS: MEAN CORPUSCULAR HEMOGLOBIN 30.4 pg (27.0-33.0); MEAN CORPUSCULAR HGB CONC 34.4 g/dl (32.0-36.5); MEAN CORPUSCULAR VOLUME 88.5 fl (80.0-96.0); PLATELET COUNT, AUTOMATED 111 10^3/uL (150-450); RED CELL DISTRIBUTION WIDTH 13.2 % (11.5-14.5); WHITE BLOOD COUNT 6.7 10^3/uL (4.0-10.0)
[2017-05-14 07:24] LABS: ANION GAP 9 MEQ/L (8-16); BLOOD UREA NITROGEN 12 MG/DL (7-18); CALCIUM LEVEL 8.8 MG/DL (8.8-10.2); CARBON DIOXIDE LEVEL 29 MEQ/L (21-32); CHLORIDE LEVEL 105 MEQ/L (98-107); CREATININE FOR GFR 1.06 MG/DL (0.70-1.30); GLOMERULAR FILTRATION RATE > 60.0 (>49); GLUCOSE, FASTING 100 MG/DL (80-110); MAGNESIUM LEVEL 1.9 MG/DL (1.8-2.4); POTASSIUM SERUM 3.7 MEQ/L (3.5-5.1); SODIUM LEVEL 143 MEQ/L (136-145)
[2017-05-14] MEDS: amLODIPine 10 MG TAB PO SCH (08:19)
--- NOTE | 2017-05-14 13:29 | IPNPDOC ---
Subjective Date Seen The patient was seen on 05/14/17. Subjective Chief Complaint/HPI The patient is a 61-year-old male admitted with a reason for visit of Acute Kidney Injury,Hyperkalemia. Events since last encounter Patient seen and examined at the bedside. Notes that he is continuing to tolerate a liquid diet at this time. He is scheduled for a PICC line this morning as per surgery. Objective Physical Examination General Exam: Positive: Alert, Cooperative, No Acute Distress Eye Exam: Negative: Sclera icteric ENT Exam: Positive: Atraumatic, Mucous membr. moist/pink Neck Exam: Negative: JVD Chest Exam: Positive: Clear to auscultation, Normal air movement Heart Exam: Positive: Rate Normal, Regular Rhythm, Normal S1, Normal S2, Negative: Gallops, Murmurs, Rubs Abdomen Exam: Positive: BS Hyperactive (LUQ), Soft Extremity Exam: Negative: Tenderness, Swelling Skin Exam: Negative: Rash Psych Exam: Positive: Oriented x 3 Assessment /Plan Problems (1) Small bowel obstruction Status: Acute Response to Treatment: Improving Problem Text: Likely a recurrence of cancer and will possibly need surgery for resolution. Diet, Bowel regimen as per surgery. Scheduled for PICC Line today as per surgery Patient is having small BMs, and passing flatus since last night Will follow up with surgical recommendations (2) TON (acute kidney injury) Status: Resolved Response to Treatment: Stable (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 Had surgery followed by chemotherapy finished in 2015. (4) Stricture of colon Status: Acute Problem Text: Tight stricture was found in the rectosigmoid junction in mar 2017 during colonoscopy . Chance of this being a malignant stricture is high. Work up was being done as any outpatient. (5) Hypertension Status: Chronic (6) Nephrolithiasis Status: Chronic (7) Gout Status: Chronic Response to Treatment: Stable (8) Crohn disease Status: Chronic Response to Treatment: Stable Plan/VTE VTE Prophylaxis Ordered?: Yes (TEDs, sequentials, knee high compression) VS, I&O, 24H, Fishbone Vital Signs/I&O Vital Signs Date Time Temp Pulse Resp B/P (MAP) Pulse Ox O2 Delivery O2 Flow Rate FiO2 05/14/17 08:19 65 118/67 05/14/17 06:00 97.9 18 97 Room Air I&O- Last 24 Hours up to 6 AM 12/14/17 06:00 Intake Total 0 ml Balance 0 ml Laboratory Data 24H LABS Laboratory Tests 2 05/14/17 06:39: Nucleated Red Blood Cells % (auto) 0.0, Anion Gap 9, Glomerular Filtration Rate > 60.0, Blood Urea Nitrogen 12, Creatinine 1.06, Sodium Level 143, Potassium Level 3.7, Chloride Level 105, Carbon Dioxide Level 29, Calcium Level 8.8, Magnesium Level 1.9 CBC/BMP Laboratory Tests 05/14/17 06:39 Red Blood Count 4.70, Mean Corpuscular Volume 88.5, Mean Corpuscular Hemoglobin 30.4, Mean Corpuscular Hemoglobin Concent 34.4, Red Cell Distribution Width 13.2 , Calcium Level 8.8 ENRIQUE MANSFIELD MD May 14, 2017 13:29
[2017-05-14 14:00] VITALS: BP 125/82
[2017-05-14] MEDS: NEOMYCIN SULFATE 500 MG TAB PO SCH ×2 (14:00→21:01)
[2017-05-14] MEDS: metroNIDAZOLE (FLAGYL) 500 MG TAB PO SCH ×2 (16:41→21:01)
[2017-05-14] MEDS ORDERED: AMINO AC/ELECTROLYTE/DEX/CALC 2,566 ML IV SCH (18:00)
[2017-05-14] MEDS: HumaLOG INSULIN (NovoLOG) PER UNIT SC SCH (18:00)
[2017-05-14] MEDS: SODIUM CHLORIDE 0.9% INJ 10 ML SYR IV SCH (18:16)
[2017-05-14] MEDS: DOCUSATE SODIUM 100 MG CAP PO SCH (21:01)
[2017-05-14 22:00] VITALS: BP 151/82
[2017-05-15] MEDS: HumaLOG INSULIN (NovoLOG) PER UNIT SC SCH ×4 (00:27→20:00)
[2017-05-15] MEDS: NEOMYCIN SULFATE 500 MG TAB PO SCH (05:52)
[2017-05-15] MEDS: SODIUM CHLORIDE 0.9% INJ 10 ML SYR IV SCH ×2 (05:54→13:50)
[2017-05-15 06:00] VITALS: BP 119/76
[2017-05-15 06:35] LABS: MEAN CORPUSCULAR HEMOGLOBIN 29.9 pg (27.0-33.0); MEAN CORPUSCULAR HGB CONC 34.2 g/dl (32.0-36.5); MEAN CORPUSCULAR VOLUME 87.4 fl (80.0-96.0); PLATELET COUNT, AUTOMATED 103 10^3/uL (150-450); RED CELL DISTRIBUTION WIDTH 13.2 % (11.5-14.5); WHITE BLOOD COUNT 5.9 10^3/uL (4.0-10.0)
[2017-05-15 06:37] LABS: ANION GAP 7 MEQ/L (8-16); BLOOD UREA NITROGEN 14 MG/DL (7-18); CALCIUM LEVEL 8.4 MG/DL (8.8-10.2); CARBON DIOXIDE LEVEL 28 MEQ/L (21-32); CHLORIDE LEVEL 107 MEQ/L (98-107); CREATININE FOR GFR 0.98 MG/DL (0.70-1.30); GLOMERULAR FILTRATION RATE > 60.0 (>49); GLUCOSE, FASTING 108 MG/DL (80-110); MAGNESIUM LEVEL 2.1 MG/DL (1.8-2.4); POTASSIUM SERUM 3.4 MEQ/L (3.5-5.1); SODIUM LEVEL 142 MEQ/L (136-145)
[2017-05-15] MEDS ORDERED: ERTAPENEM SODIUM 1 GM in APPROPRIATE DILUENT 1 EA IV ONE (07:00)
[2017-05-15] MEDS: metroNIDAZOLE (FLAGYL) 500 MG TAB PO SCH (08:41)
[2017-05-15] MEDS: KCL 10MEQ IN 100ML SWI (KRUN) 10 MEQ in APPROPRIATE DILUENT 1 EA IV SCH ×8 (08:41→12:33)
[2017-05-15] MEDS: DOCUSATE SODIUM 100 MG CAP PO SCH ×2 (08:42→21:00)
[2017-05-15] MEDS: amLODIPine 10 MG TAB PO SCH (08:42)
--- NOTE | 2017-05-15 09:14 | REP ---
Procedure: PICC line insertion with Avelino-Yasmany The procedure was performed under the direct supervision of Dr. Bethea. The risks and benefits of the procedure were explained to the patient and informed consent was obtained. The right basilic vein was localized using ultrasound guidance. The skin was prepped and draped in a sterile fashion. 2% lidocaine was used as a local anesthetic. Using ultrasound guidance the basilic vein was cannulated and a 0.018 guidewire was inserted and advanced to the SVC using fluoroscopic guidance. The needle was removed and a 5.5 [place] dilator and peel-away sheath was inserted over the guide wire. A 5.5 [place] dual lumen catheter was cut to length of 42 cm. The dilator was removed and the catheter was inserted over the guide wire with the tip ending in the SVC. The peel-away sheath was removed and the catheter was flushed with heparinized saline as per Hospital protocol. The catheter was affixed to the skin and a sterile dressing was applied. The the patient tolerated the procedure well and there were no immediate complications. 0.4 minutes of fluoro time was utilized for this procedure. Reviewed by TASHA Zeng 05/14/2017 02:16 PSigned by Joseph Bethea MD 05/15/2017 09:05 A
--- NOTE | 2017-05-15 11:11 | IPNPDOC ---
Subjective Date Seen The patient was seen on 05/15/17. Subjective Chief Complaint/HPI The patient is a 61-year-old male admitted with a reason for visit of Acute Kidney Injury,Hyperkalemia. Events since last encounter Patient seen and examined at bedside. States that he has not had any abdominal pain, and did receive his PICC line yesterday. He is scheduled for the OR today. Objective Physical Examination General Exam: Positive: Alert, Cooperative, No Acute Distress Eye Exam: Negative: Sclera icteric ENT Exam: Positive: Atraumatic, Mucous membr. moist/pink Neck Exam: Negative: JVD Chest Exam: Positive: Clear to auscultation, Normal air movement Heart Exam: Positive: Rate Normal, Regular Rhythm, Normal S1, Normal S2, Negative: Gallops, Murmurs, Rubs Abdomen Exam: Positive: BS Hyperactive (LUQ), Soft Extremity Exam: Negative: Tenderness, Swelling Skin Exam: Negative: Rash Psych Exam: Positive: Oriented x 3 Assessment /Plan Plan/VTE VTE Prophylaxis Ordered?: Yes (TEDs, sequentials, knee high compression) Plan (1) Small bowel obstruction Status: Acute Response to Treatment: Improving Problem Text: Likely a recurrence of cancer and will possibly need surgery for resolution. 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 Had surgery followed by chemotherapy finished in 2015. (4) Stricture of colon Status: Acute Problem Text: Tight stricture was found in the rectosigmoid junction in mar 2017 during colonoscopy . Chance of this being a malignant stricture is high. Work up was being done as any outpatient. (5) Hypertension Status: Chronic (6) Nephrolithiasis Status: Chronic (7) Gout Status: Chronic Response to Treatment: Stable (8) Crohn disease Status: Chronic Response to Treatment: Stable VS, I&O, 24H, Fishbone Vital Signs/I&O Vital Signs Date Time Temp Pulse Resp B/P (MAP) Pulse Ox O2 Delivery O2 Flow Rate FiO2 05/15/17 08:45 Room Air 05/15/17 08:42 72 142/74 05/15/17 06:00 97.5 18 96 I&O- Last 24 Hours up to 6 AM 05/16/17 06:00 Intake Total 0 ml Output Total 200 ml Balance -200 ml Laboratory Data 24H LABS Laboratory Tests 2 05/14/17 18:17: Bedside Glucose (Misc Panel) 92 05/15/17 06:02: Nucleated Red Blood Cells % (auto) 0.0, Anion Gap 7L, Glomerular Filtration Rate > 60.0, Blood Urea Nitrogen 14, Creatinine 0.98, Sodium Level 142, Potassium Level 3.4L, Chloride Level 107, Carbon Dioxide Level 28, Calcium Level 8.4L, Magnesium Level 2.1 05/15/17 06:05: Bedside Glucose (Misc Panel) 105 CBC/BMP Laboratory Tests 05/15/17 06:02 Red Blood Count 4.68, Mean Corpuscular Volume 87.4, Mean Corpuscular Hemoglobin 29.9, Mean Corpuscular Hemoglobin Concent 34.2, Red Cell Distribution Width 13.2 , Calcium Level 8.4 L ENRIQUE MANSFIELD MD May 15, 2017 11:11
[2017-05-15] MEDS: MORPHINE 2 MG/ML 1ML SYRINGE IV PRN (13:14)
[2017-05-15 13:40] VITALS: BP 112/66
[2017-05-15] MEDS ORDERED: fentaNYL 100 MCG/2 ML INJECTION (J3010) As Ordered ONE ×3 (14:37→16:30)
[2017-05-15] MEDS ORDERED: MIDAZOLAM INJ 2 MG/2 ML VIAL (J2250) As Ordered ONE ×2 (14:38→14:52)
[2017-05-15] MEDS: MIDAZOLAM INJ 2 MG/2 ML VIAL (J2250) IV PRN ×2 (14:58→15:00)
[2017-05-15] MEDS ORDERED: ERTAPENEM 1 GM INJ (INVanz) (J1335) As Ordered ONE (15:27)
[2017-05-15] MEDS ORDERED: ETOMIDATE INJ 20MG/10ML VIAL As Ordered ONE (15:29)
[2017-05-15] MEDS ORDERED: SUCCINYLCHOLINE 100 MG/5 ML SYRINGE (J0330) As Ordered ONE (15:30)
[2017-05-15] MEDS ORDERED: ONDANSETRON 4MG/2ML VIAL (J2405) IV PRN ×2 (15:45→19:30)
[2017-05-15] MEDS ORDERED: diphenhydrAMINE INJ 50MG/ML VIAL (J1200) IV PRN (15:45)
[2017-05-15] MEDS ORDERED: METOCLOPRAMIDE INJ 10MG/2ML VIAL (J2765) IV PRN ×2 (15:45→19:30)
[2017-05-15] MEDS ORDERED: WALLBOXKEY XX PRN (15:45)
[2017-05-15] MEDS ORDERED: NALOXONE INJ 0.4 MG/1 ML VIAL (J2310) IV PRN (15:45)
[2017-05-15] MEDS ORDERED: EPIDURAL/PCA KEYS XX PRN (15:45)
[2017-05-15] MEDS ORDERED: fentaNYL 100 MCG/2 ML INJECTION (J3010) IV PRN ×2 (15:45→19:30)
[2017-05-15] MEDS ORDERED: KETAMINE HCL 200 MG/20 ML VIAL As Ordered ONE (16:36)
[2017-05-15] MEDS ORDERED: ePHEDrine SULFATE 25 MG/5 ML(5MG/ML) SYRINGE As Ordered ONE (17:16)
[2017-05-15] MEDS ORDERED: ROCURONIUM BROMIDE 50 MG/5 ML VIAL As Ordered ONE ×2 (17:16→17:37)
[2017-05-15] MEDS ORDERED: AMINO AC/ELECTROLYTE/DEX/CALC 2,566 ML IV SCH (18:00)
[2017-05-15] MEDS ORDERED: ONDANSETRON 4MG/2ML VIAL (J2405) As Ordered ONE (18:04)
[2017-05-15] MEDS ORDERED: GLYCOPYRROLATE INJ 0.2 MG/ML 2 ML VIAL As Ordered ONE (18:04)
[2017-05-15] MEDS ORDERED: NEOSTIGMINE 10 MG/10 ML VIAL (J2710) As Ordered ONE (18:04)
[2017-05-15] MEDS ORDERED: FENTANYL 2MCG/ML BUPIVACAINE 0.0625% NACL 250ML IV BAG As Ordered ONE (18:36)
[2017-05-15] MEDS: FENTANYL/BUPIVACAINE/NACL BAG 250 ML EPIDURAL SCH (19:05)
[2017-05-15] MEDS ORDERED: LR 1,000 ML IV SCH ×2 (19:15→19:30)
[2017-05-15] MEDS ORDERED: MEPERIDINE INJ 25 MG/ML VIAL (J2175) IV PRN (19:30)
[2017-05-15] MEDS ORDERED: PERCOCET 5MG/325MG TAB PO PRN (19:30)
[2017-05-16] MEDS: HumaLOG INSULIN (NovoLOG) PER UNIT SC SCH ×4 (01:40→20:05)
[2017-05-16 06:00] VITALS: BP 113/69
[2017-05-16] MEDS: SODIUM CHLORIDE 0.9% INJ 10 ML SYR IV SCH ×2 (07:10→17:02)
[2017-05-16 07:26] LABS: BASO % 0.2 % (0.0-1.0); LYMPH # 0.5 10^3/uL (1.5-4.5); LYMPH % 2.4 % (24.0-44.0); MEAN CORPUSCULAR HEMOGLOBIN 30.4 pg (27.0-33.0); MEAN CORPUSCULAR HGB CONC 34.4 g/dl (32.0-36.5); MEAN CORPUSCULAR VOLUME 88.4 fl (80.0-96.0); MONO # 0.5 10^3/uL (0.0-0.8); MONO % 2.7 % (0.0-5.0); NEUTROPHILS # 18.2 10^3/uL (1.8-7.7); NEUTROPHILS % 93.7 % (36.0-66.0); PLATELET COUNT, AUTOMATED 155 10^3/uL (150-450); RED CELL DISTRIBUTION WIDTH 14.2 % (11.5-14.5); WHITE BLOOD COUNT 19.4 10^3/uL (4.0-10.0)
[2017-05-16 07:48] LABS: ANION GAP 10 MEQ/L (8-16); BLOOD UREA NITROGEN 16 MG/DL (7-18); CALCIUM LEVEL 7.9 MG/DL (8.8-10.2); CARBON DIOXIDE LEVEL 23 MEQ/L (21-32); CHLORIDE LEVEL 107 MEQ/L (98-107); CREATININE FOR GFR 1.04 MG/DL (0.70-1.30); GLOMERULAR FILTRATION RATE > 60.0 (>49); GLUCOSE, FASTING 129 MG/DL (80-110); POTASSIUM SERUM 4.5 MEQ/L (3.5-5.1); SODIUM LEVEL 140 MEQ/L (136-145)
[2017-05-16 08:00] VITALS: BP 108/76
[2017-05-16] MEDS: amLODIPine 10 MG TAB PO SCH (09:00)
[2017-05-16] MEDS: ENOXAPARIN 40 MG/0.4 ML SYRINGE (J1650) SC SCH (09:20)
[2017-05-16] MEDS: LR 1,000 ML IV SCH ×4 (09:20→21:08)
[2017-05-16] MEDS: DOCUSATE SODIUM 100 MG CAP PO SCH ×2 (09:20→21:00)
--- NOTE | 2017-05-16 09:22 | RO ---
DATE OF PROCEDURE: 05/15/2017 PREOPERATIVE DIAGNOSIS: Intestinal obstruction likely secondary to recurrent carcinoma. 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 PROCEDURE PERFORMED: Exploratory laparotomy with biopsy of omentum and decompression of small bowel, and end ileostomy for diversion. SURGEON: Dr. Higinio Morin MOLD POLISHER: Dr Rendon ANESTHESIA: General and epidural. 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 This was obstructing. After the resection, he underwent chemotherapy and has been followed by oncology. He was noted to have a rise in his CEA recently. An attempted colonoscopy in March revealed inability to advance the scope beyond the distal sigmoid due to angulation and stricture. CT scan showed a small amount of fluid in the pelvis with some thickening of sigmoid. I have been suspicious that he has a recurrence of his cancer. Subsequent to this, he was admitted to the hospital with evidence of a distal ileal obstruction which has failed to resolve. He is now for exploratory laparotomy. OPERATIVE PROCEDURE: The patient had an epidural catheter placed for postoperative analgesia. He was transported to the operating room and placed under general endotracheal anesthesia. A Blackwood catheter was inserted. Thromboembolic deterrent stockings (TEDS) and sequentials were utilized. The patient's abdomen was prepped and draped in a sterile fashion. The abdomen was entered through a low midline incision following his old scar and this was extended slightly above the umbilicus. On opening the peritoneum, the patient was found to have some clear ascites fluid which was perhaps very lightly yellowish in color. Approximately a liter of fluid was aspirated from the abdomen. As the bowel was examined, it was clear that he had innumerable tiny specks covering all of the visible bowel consistent with tiny tumor nodules. The incision was opened further through the length of the incision. At the lower end of the incision, there was some omentum matted to the anterior abdominal wall which was quite nodular consistent with tumor involvement. A few small fragments of the omentum were resected for a specimen. Further inspection revealed a carpet-like distribution of small tumor nodules over the retroperitoneum and the mesentery of the distal small bowel. The pelvis was entirely fixed by tumor. It was impossible to palpate the sigmoid colon as there was no free space remaining in this area. The proximal small bowel was markedly dilated to perhaps 6 or even 7 cm. In the distal ileum, there were one or two loops running across the abdomen that were markedly distorted by shortening of the mesentery by tumor. After inspecting the abdomen and thinking about options , it was clear that a resection was not going to be possible. I elected to create an ileostomy in his distal ileum so that he would be unobstructed and perhaps able to eat for a time. Initially, a small enterotomy was made at the antimesenteric border of the mid point of the small bowel. A long suction device was placed through a pursestring suture of #3-0 Vicryl and approximately 1650 mL of intestinal fluid was suctioned from the small bowel with collapse. The bowel wall was quite thickened and edematous. This enterotomy was then closed in two layers with #3-0 Vicryl. The terminal ileum was transected with a linear cutter 55 stapler which required two loads. The mesentery was then divided down to its base using the harmonic scalpel. There were tumor implants on both sides of the mesentery and the mesentery was quite thickened and slightly shortened. Toward the base of the mesentery, a small bleeder occurred and this was controlled with a #0 Vicryl suture without hampering the blood supply to the segment of bowel. I scored the peritoneum on both sides of the mesentery to gain a little extra freedom of motion to bring the loop up to the anterior abdominal wall. The distal portion on inspection showed some failure of the earnest to secure the end and this was restapled with a TX60B G stapler. This very end portion of the bowel was resected and also sent as a specimen with the fragments of omentum that had been removed earlier. The distal end was then inverted and oversewn with #3-0 Vicryl. A site for the ileostomy was created at about the level of the umbilicus in the left midabdomen. A disk of skin was excised and the subcutaneous fat was incised. The anterior rectus fascia was opened longitudinally and the muscle fibers were spread and the peritoneum entered. The small bowel was delivered through this opening without significant difficulty at this level. The abdomen was then inspected for hemostasis, which was excellent. The abdominal fascia was closed with interrupted simple sutures of #1 Vicryl. The skin incision was closed with skin earnest. The incision was then covered and the staple line was excised off the end of the small bowel and the ileostomy was matured with multiple simple sutures and four corner everting sutures of #3- 0 Vicryl. The ostomy was quite edematous and thickened, but was viable. An ostomy appliance was placed and a sterile dressing was placed over the midline incision. The patient tolerated the procedure acceptably. He was then awakened in the operating room, extubated and moved to the recovery room in stable condition. PAU
[2017-05-16 10:00] VITALS: BP 105/65
--- NOTE | 2017-05-16 10:51 | IPNPDOC ---
Subjective Date Seen The patient was seen on 05/16/17. Subjective Chief Complaint/HPI The patient is a 61-year-old male admitted with a reason for visit of Acute Kidney Injury,Hyperkalemia. Events since last encounter Patient seen and examined at bedside this morning. The patient did undergo surgery yesterday, and is noted to be resting relatively comfortably at the bedside. He reports that his pain is controlled. Denies any other acute complaints at this time. Objective Physical Examination General Exam: Positive: Alert, Cooperative, No Acute Distress Eye Exam: Negative: Sclera icteric ENT Exam: Positive: Atraumatic, Mucous membr. moist/pink Neck Exam: Negative: JVD Chest Exam: Positive: Clear to auscultation, Normal air movement Heart Exam: Positive: Rate Normal, Regular Rhythm, Normal S1, Normal S2, Negative: Gallops, Murmurs, Rubs Abdomen Exam: Positive: Soft, Other (+Ileostomy) Extremity Exam: Negative: Tenderness, Swelling Skin Exam: Negative: Rash Psych Exam: Positive: Oriented x 3 Assessment /Plan Plan/VTE VTE Prophylaxis Ordered?: Yes (TEDs, sequentials, knee high compression) Plan (1) Small bowel obstruction Likely a recurrence of cancer s/p PICC Line 05/14, on TPN as per surgery s/p Exploratory laparotomy with biopsy of omentum and decompression of small bowel, and end ileostomy for diversion on 05/15/17 Will follow up with surgical recommendations (2) TON (acute kidney injury) Status: Resolved Response to Treatment: Stable (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 Had surgery followed by chemotherapy finished in 2015. (4) Stricture of colon Status: Acute Problem Text: Tight stricture was found in the rectosigmoid junction in mar 2017 during colonoscopy . Chance of this being a malignant stricture is high. Work up was being done as any outpatient. (5) Hypertension Status: Chronic (6) Nephrolithiasis Status: Chronic (7) Gout Status: Chronic Response to Treatment: Stable (8) Crohn disease Status: Chronic Response to Treatment: Stable VS, I&O, 24H, Fishbone Vital Signs/I&O Vital Signs Date Time Temp Pulse Resp B/P (MAP) Pulse Ox O2 Delivery O2 Flow Rate FiO2 05/16/17 09:00 115 108/76 05/16/17 08:00 99.0 17 91 05/16/17 06:00 Nasal Cannula 2.0 I&O- Last 24 Hours up to 6 AM 05/17/17 06:00 Intake Total 0 ml Output Total 0 ml Balance 0 ml Laboratory Data 24H LABS Laboratory Tests 2 05/15/17 11:48: Bedside Glucose (Misc Panel) 139H 05/15/17 15:44: Bedside Glucose (Misc Panel) 115 05/16/17 07:21: Immature Granulocyte % (Auto) 1.0H, White Blood Count 19.4H, Red Blood Count 5.52, Hemoglobin 16.8#, Hematocrit 48.8, Mean Corpuscular Volume 88.4, Mean Corpuscular Hemoglobin 30.4, Mean Corpuscular Hemoglobin Concent 34.4, Red Cell Distribution Width 14.2, Platelet Count 155, Neutrophils (%) (Auto) 93.7H, Lymphocytes (%) (Auto) 2.4L, Monocytes (%) (Auto) 2.7, Eosinophils (%) (Auto) 0.0, Basophils (%) (Auto) 0.2, Neutrophils # (Auto) 18.2H, Lymphocytes # (Auto) 0.5L, Monocytes # (Auto) 0.5, Eosinophils # (Auto) 0.0, Basophils # (Auto) 0.0, Immature Granulocyte # (Auto) 0.2H, Nucleated Red Blood Cells % (auto) 0.2H, Anion Gap 10, Glomerular Filtration Rate > 60.0, Blood Urea Nitrogen 16, Creatinine 1.04, Sodium Level 140, Potassium Level 4.5#, Chloride Level 107, Carbon Dioxide Level 23, Calcium Level 7.9L CBC/BMP Laboratory Tests 05/16/17 07:21 Red Blood Count 5.52, Mean Corpuscular Volume 88.4, Mean Corpuscular Hemoglobin 30.4, Mean Corpuscular Hemoglobin Concent 34.4, Red Cell Distribution Width 14.2 , Neutrophils (%) (Auto) 93.7 H, Lymphocytes (%) (Auto) 2.4 L, Monocytes (%) ( Auto) 2.7, Eosinophils (%) (Auto) 0.0, Basophils (%) (Auto) 0.2, Neutrophils # ( Auto) 18.2 H, Lymphocytes # (Auto) 0.5 L, Monocytes # (Auto) 0.5, Eosinophils # (Auto) 0.0, Basophils # (Auto) 0.0, Calcium Level 7.9 L ENRIQUE MANSFIELD MD May 16, 2017 10:51
[2017-05-16] MEDS: FENTANYL/BUPIVACAINE/NACL BAG 250 ML EPIDURAL SCH (12:52)
[2017-05-16 14:00] VITALS: BP 113/74
--- NOTE | 2017-05-16 17:05 | IPN ---
DATE: 05/16/2017 HISTORY: The patient is now postoperative day 1 from exploratory laparotomy for bowel obstruction. At surgery he was found to have extensive tumor, particularly within the pelvis and lower abdomen. The pelvic organs were all matted together by tumor. The obstruction was in the terminal ileum from tumor involvement of the mesentery and bowel. There are innumerable tiny spots of tumor scattered all over the small bowel. He had a biopsy of the omentum and small bowel, and an end-ileostomy was created for diversion. He has an epidural in place, which was increased to 16 mL per hour overnight. His urine output appears adequate at this time. He is getting a bolus of fluid to address a rise in his hematocrit felt to be secondary to under-hydration at this point. He is alert and responsive. Vital signs show that he is afebrile. His pulse is in the 80s to 115 this morning. His intake and output shows 3800 in yesterday with a 1000 out. There is nothing recorded for urine output today, but his Blackwood catheter shows I am guessing 600 mL in the bag right now. This is relatively darker orange in color. PHYSICAL EXAMINATION: The patient is alert and responsive. Heart exam shows a regular rate and rhythm at about 100. The lungs are clear to auscultation. The abdomen is nondistended. He has a dry dressing on his midline wound. The ostomy in his left lower quadrant is quite edematous but pink and viable, but there is no output yet. Laboratory studies this morning: Chemistries showed a sodium of 140, potassium 4.5, chloride 107, CO2 of 23, BUN of 16, creatinine 1.0, and a glucose of 129. CBC showed a white count of 19,000 with a hemoglobin of 17, hematocrit of 49, which is up from 41 preoperative, and platelet count of 155,000. 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 He has an ileostomy for diversion, which has not yet started working. I think he is somewhat under-hydrated. We did remove 2600 mL from within the bowel and the abdomen in the form of ascites, and so I have ordered a bolus of fluid of approximately 1500 mL to go in over 6 hours to improve his hydration. He remains on total parenteral nutrition as well. PLAN: I will let Mr. Almonte take some sips of clear liquids and popsicles today for comfort. We will need to monitor for onset of output from his ileostomy. The epidural will be continued as will the total parenteral nutrition (TPN). Will repeat his labs tomorrow to monitor hydration and his renal function. The patient and I did have a conversation today about the findings, and he was informed of the extensive nature of his tumor and that there is no other operative treatment available. I did in the course of discussing with him indicate that this is likely to shorten his life significantly with survival measured in weeks to months. MTDD
[2017-05-16 18:00] VITALS: BP 109/72
[2017-05-16] MEDS ORDERED: AMINO AC/ELECTROLYTE/DEX/CALC 2,566 ML IV SCH (18:00)
[2017-05-16 22:00] VITALS: BP 115/69
[2017-05-17] MEDS: HumaLOG INSULIN (NovoLOG) PER UNIT SC SCH ×5 (00:09→23:53)
[2017-05-17] MEDS: LR 1,000 ML IV SCH ×3 (00:12→08:15)
[2017-05-17 02:00] VITALS: BP 128/75
[2017-05-17] MEDS: FENTANYL/BUPIVACAINE/NACL BAG 250 ML EPIDURAL SCH ×2 (03:15→18:49)
[2017-05-17 06:00] VITALS: BP 118/76
[2017-05-17] MEDS: SODIUM CHLORIDE 0.9% INJ 10 ML SYR IV SCH ×2 (06:00→18:41)
[2017-05-17 06:50] LABS: MEAN CORPUSCULAR HEMOGLOBIN 30.6 pg (27.0-33.0); MEAN CORPUSCULAR VOLUME 90.1 fl (80.0-96.0); RED CELL DISTRIBUTION WIDTH 14.4 % (11.5-14.5); WHITE BLOOD COUNT 12.3 10^3/uL (4.0-10.0)
[2017-05-17 07:12] LABS: PLATELET COUNT, AUTOMATED 70 10^3/uL (150-450)
[2017-05-17 07:13] LABS: IMMATURE PLATELET FRACTION % 11.3 % (0.0-10.9)
[2017-05-17] MEDS: amLODIPine 10 MG TAB PO SCH (09:30)
[2017-05-17] MEDS: DOCUSATE SODIUM 100 MG CAP PO SCH ×2 (09:30→21:00)
[2017-05-17 10:00] VITALS: BP 128/77
[2017-05-17] MEDS: ENOXAPARIN 40 MG/0.4 ML SYRINGE (J1650) SC SCH (10:58)
[2017-05-17] MEDS: PANTOPRAZOLE 40MG INJ (PROTONIX) (C9113) IV SCH (11:10)
--- NOTE | 2017-05-17 11:11 | IPNPDOC ---
Subjective Date Seen The patient was seen on 05/17/17. Subjective Chief Complaint/HPI The patient is a 61-year-old male admitted with a reason for visit of Acute Kidney Injury,Hyperkalemia. Events since last encounter Patient seen and examined at the bedside. States that his pain is relatively well controlled this morning. Denies any overnight events. Objective Physical Examination General Exam: Positive: Alert, Cooperative, No Acute Distress Eye Exam: Negative: Sclera icteric ENT Exam: Positive: Atraumatic, Mucous membr. moist/pink Neck Exam: Negative: JVD Chest Exam: Positive: Clear to auscultation, Normal air movement Heart Exam: Positive: Rate Normal, Regular Rhythm, Normal S1, Normal S2, Negative: Gallops, Murmurs, Rubs Abdomen Exam: Positive: Soft, Other (+Ileostomy) Extremity Exam: Negative: Tenderness, Swelling Skin Exam: Negative: Rash Psych Exam: Positive: Oriented x 3 Assessment /Plan Plan/VTE VTE Prophylaxis Ordered?: Yes (TEDs, sequentials, knee high compression) Plan (1) Small bowel obstruction Likely a recurrence of cancer s/p PICC Line 05/14, on TPN as per surgery s/p Exploratory laparotomy with biopsy of omentum and decompression of small bowel, and end ileostomy for diversion on 05/15/17 Will follow up with surgical recommendations (2) TON (acute kidney injury) Status: Resolved Response to Treatment: Stable (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 Had surgery followed by chemotherapy finished in 2015. (4) Stricture of colon Status: Acute Problem Text: Tight stricture was found in the rectosigmoid junction in mar 2017 during colonoscopy . Chance of this being a malignant stricture is high. Work up was being done as any outpatient. (5) Hypertension Status: Chronic (6) Nephrolithiasis Status: Chronic (7) Gout Status: Chronic Response to Treatment: Stable (8) Crohn disease Status: Chronic Response to Treatment: Stable I did discuss goals of care with the patient at the bedsides and went over options moving forward. He reports that he would like to think about his options and discuss with his family further before making decisions about CODE STATUS, and goals of care. VS, I&O, 24H, Fishbone Vital Signs/I&O Vital Signs Date Time Temp Pulse Resp B/P (MAP) Pulse Ox O2 Delivery O2 Flow Rate FiO2 05/17/17 10:00 98.2 20 128/77 (94) 94 Nasal Cannula 2.0 05/17/17 06:00 18 I&O- Last 24 Hours up to 6 AM 05/18/17 06:00 Intake Total 0 ml Output Total 0 ml Balance 0 ml Laboratory Data 24H LABS Laboratory Tests 2 05/16/17 23:56: Bedside Glucose (Misc Panel) 115 05/17/17 05:56: Bedside Glucose (Misc Panel) 127H 05/17/17 06:35: Nucleated Red Blood Cells % (auto) 0.0, Immature Platelet Fraction 11.3H CBC/BMP Laboratory Tests 05/17/17 06:35 Red Blood Count 4.34, Mean Corpuscular Volume 90.1, Mean Corpuscular Hemoglobin 30.6, Mean Corpuscular Hemoglobin Concent 34.0, Red Cell Distribution Width 14.4 ENRIQUE MANSFIELD MD May 17, 2017 11:11
--- NOTE | 2017-05-17 11:39 | IPNPDOC ---
Subjective General Date/Time Seen The patient was seen on 05/17/17 at 11:21. Subject Chief Complaint/History Patient seen laying on the bed, appears comfortable. He is on epidural. He is taking sips of water. His ileostomy bag has air and succus contents. Abdomen still moderately distended. Pain control, he reports is adequate with the epidural. Current Medications Current Medications Current Medications Allopurinol (Zyloprim) 300 mg DAILY PO ; Start 05/11/17 at 09:00; Stop at 09:00; Status DC Amino Ac/Electrol/ Dextrose/Calcium 2,566 ml @ 80 mls/hr ONCE@1800 IV Last administered on 05/14/17 18:15; Start 05/14/17 at 18:00; Stop 05/15/17 at 17 :59; Status DC Amino Ac/Electrol/ Dextrose/Calcium 2,566 ml @ 80 mls/hr ONCE@1800 IV Last administered on 05/15/17 03:30; Start 05/15/17 at 18:00; Stop 05/16/17 at 17 :59; Status DC Amino Ac/Electrol/ Dextrose/Calcium 2,566 ml @ 80 mls/hr ONCE@1800 IV Last administered on 05/16/17 20:06; Start 05/16/17 at 18:00; Stop 05/17/17 at 17 :59 Amlodipine Besylate (Norvasc) 10 mg DAILY PO Last administered on 05/15/17 08 :42; Start 05/11/17 at 09:00; Stop 06/10/17 at 08:59 Diphenhydramine HCl (Benadryl) 12.5 mg Q4HP PRN IV ITCHING; Start 05/15/17 at 15:45; Stop 05/18/17 at 15:44 Docusate Sodium (Colace) 100 mg BID PO Last administered on 05/16/17 09:20; Start 05/14/17 at 21:00; Stop 06/13/17 at 20:59 Enoxaparin Sodium (Lovenox) 40 mg DAILY SC Last administered on 05/16/17 09: 20; Start 05/16/17 at 09:00; Stop 05/21/17 at 08:59 Fentanyl Citrate (Sublimaze) 25 mcg Q5MP PRN IV MODERATE PAIN (PS 4-7); Start 05/15/17 at 19:30; Stop 05/15/17 at 20:30; Status DC Fentanyl Citrate (Sublimaze) 50 mcg ASDIRECTED PRN IV PAIN Last administered on 05/15/17 14:58; Start 05/15/17 at 15:45; Stop 05/16/17 at 12:03; Status DC Fentanyl/ Bupivacaine HCl 250 ml @ 16 mls/hr [id number] EPIDURAL Last administered on 05/17/17 03:15; Start 05/15/17 at 15:45; Stop 05/18/17 at 15 :44 Heparin Sodium (Heparin (Flush)) 200 units ASDIRECTED PRN IV SEE LABEL COMMENTS ; Start 05/14/17 at 13:15; Stop 06/13/17 at 13:14 Heparin Sodium (Heparin (Flush)) 200 units PICC IV Last administered on 06:00; Start 05/14/17 at 18:00; Stop 06/13/17 at 17:59 Home Med (Med Rec Complete!) ASDIRECTED XX ; Start 05/10/17 at 17:30; Stop 05/10/17 at 17:38; Status DC Hydrochlorothiazide (Hydrodiuril) 25 mg DAILY PO ; Start 05/11/17 at 09:00; Stop 05/11/17 at 09:00; Status DC Insulin Human Lispro (HumaLOG INSULIN) See Protocol Table Q6H SC Last administered on 05/15/17 12:34; Start 05/14/17 at 18:00; Stop 05/15/17 at 12 :01; Status DC Insulin Human Lispro (HumaLOG INSULIN) See Protocol Table Q6H SC Last administered on 05/16/17 12:36; Start 05/15/17 at 18:00; Stop 05/16/17 at 15 :00; Status DC Insulin Human Lispro (HumaLOG INSULIN) See Protocol Table Q6H SC Last administered on 05/17/17 06:04; Start 05/16/17 at 18:00; Stop 05/17/17 at 12 :01 Lactated Ringer's 1,000 ml @ 50 mls/hr Q20H IV ; Start 05/15/17 at 19:15; Stop 05/16/17 at 08:22; Status DC Lactated Ringer's 1,000 ml @ 100 mls/hr Q10H IV ; Start 05/15/17 at 19:30; Stop 05/15/17 at 20:30; Status DC Lactated Ringer's 1,000 ml @ 250 mls/hr Q4H IV Last administered on 08:15; Start 05/16/17 at 08:30; Stop 06/15/17 at 08:29 Meperidine HCl (Demerol) 12.5 mg Q5MP PRN IV SHIVERING; Start 05/15/17 at 19: 30; Stop 05/15/17 at 20:30; Status DC Metoclopramide HCl (REGLAN INJection) 10 mg Q6HP PRN IV NAUSEA; Start at 15:45; Stop 05/18/17 at 15:44 Metoclopramide HCl (REGLAN INJection) 10 mg Q6HP PRN IV NAUSEA OR VOMITING; Start 05/15/17 at 19:30; Stop 05/15/17 at 20:30; Status DC Metronidazole (Flagyl) 500 mg TID PO Last administered on 05/15/17 08:41; Start 05/14/17 at 16:00; Stop 05/15/17 at 09:01; Status DC Midazolam HCl (Versed) 1 mg ASDIRECTED PRN IV ANXIETY Last administered on 15:00; Start 05/15/17 at 15:30; Stop 05/15/17 at 15:42; Status DC Morphine Sulfate (Morphine Sulfate Inj) 0.5 mg Q2HP PRN IV SEVERE PAIN (PS 8-10 ) Last administered on 05/15/17 13:14; Start 05/10/17 at 17:45; Stop at 17:44 Naloxone HCl (Narcan) 0.1 mg Q5MP PRN IV SEE LABEL COMMENTS; Start 05/15/17 at 15:45; Stop 05/18/17 at 15:44 Neomycin Sulfate (Mycifradin) 1,000 mg Q8H PO Last administered on 05/15/17 05:52; Start 05/14/17 at 14:00; Stop 05/15/17 at 07:00; Status DC Non-Formulary Medication (Epidural/WEATHERSEAL TECHNICIAN [place]) 1 each ASDIRECTED PRN XX SEE LABEL COMMENTS; Start 05/15/17 at 15:45; Stop 06/14/17 at 15:44 Non-Formulary Medication ([place]) ASDIRECTED PRN XX SEE LABEL COMMENTS; Start 05/15/17 at 15:45; Stop 06/14/17 at 15:44 Ondansetron HCl (ZOFRAN INJection) 4 mg Q4HP PRN IV NAUSEA OR VOMITING; Start 05/15/17 at 19:30; Stop 05/15/17 at 20:30; Status DC Ondansetron HCl (ZOFRAN INJection) 4 mg Q6HP PRN IV REFRACTORY NAUSEA; Start 05/15/17 at 15:45; Stop 05/15/17 at 19:18; Status DC Ondansetron HCl (ZOFRAN INJection) 4 mg Q6HP PRN IV NAUSEA OR VOMITING Last administered on 05/11/17 01:17; Start 05/10/17 at 17:45; Stop 06/09/17 at 17:44 ; Status Future Hold Oxycodone/ Acetaminophen (Percocet 5mg/ 325mg Tablet) 1 tab ASDIRECTED PRN PO MILD/MODERATE PAIN (PS 1-7); Start 05/15/17 at 19:30; Stop 05/15/17 at 20:30; Status DC Pantoprazole Sodium (Protonix) 40 mg DAILY IV Last administered on 05/17/17 11:10; Start 05/17/17 at 09:00; Stop 06/16/17 at 08:59 Potassium Chloride 10 meq/ IV Miscellaneous Supplies 100 ml @ 100 mls/hr Q1H IV Last administered on 05/15/17 12:33; Start 05/15/17 at 08:00; Stop 05/15 at 11:59; Status DC Potassium Chloride 20 meq/ Dextrose/Lactated Ringer's 1,010 ml @ 250 mls/hr Q4H3M IV ; Start 05/10/17 at 16:30; Stop 06/09/17 at 16:29; Status Cancel Potassium Chloride 40 meq/ Sodium Chloride 1,020 ml @ 100 mls/hr [id number] IV ; Start 05/10/17 at 22:45; Stop 05/10/17 at 22:53; Status DC Potassium Chloride/Sodium Chloride 1,000 ml @ 100 mls/hr Q10H IV Last administered on 05/13/17 06:09; Start 05/10/17 at 23:00; Stop 05/13/17 at 13: 22; Status DC Sodium Chloride 1,000 ml @ 100 mls/hr Q10H IV Last administered on 05/10/17 20:29; Start 05/10/17 at 18:00; Stop 05/10/17 at 22:39; Status DC Sodium Chloride (Saline Lock Flush) 10 ML PICC IV Last administered on 06:00; Start 05/14/17 at 18:00; Stop 06/13/17 at 17:59 Sodium Chloride (Saline Lock Flush) 10ML ASDIRECTED PRN IV SEE LABEL COMMENTS; Start 05/14/17 at 13:15; Stop 06/13/17 at 13:14 Spironolactone (Aldactone) 25 mg QAM PO ; Start 05/11/17 at 09:00; Stop at 09:00; Status DC Allergies Coded Allergies: No Known Drug Allergy (Verified Allergy, Unknown, 03/20/17) Objective Physical Examination Examination GENERAL APPEARANCE:Patient seen, laying in bed, awake, alert, and oriented. Comfortable, in no acute distress. SKIN: warm and dry. HEENT: Normocephalic, atraumatic. [place]ken palpebral conjunctiva, anicteric sclerae. Lips and mucosa appear dry NECK: Supple, no thyromegaly. No obvious jugular venous distention. LUNGS: Clear to auscultation bilaterally. No wheezing appreciated. HEART: No chest wall abnormalities. Regular rate and rhythm with no murmurs appreciated. ABDOMEN: Abdomen is round, soft, moderately distended, tympanitic. midline incision is clean, dry, intact. No erythema. Left lower quadrant ileostomy pink , mild swelling, with air and liquid succus in bag. Hypoactive bowel sounds. Nontender on palpation EXTREMITIES: Extremities have no deformities. No edema. Vital Signs Vital Signs Date Time Temp Pulse Resp B/P (MAP) Pulse Ox O2 Delivery O2 Flow Rate FiO2 05/17/17 10:00 98.2 20 128/77 (94) 94 Nasal Cannula 2.0 05/17/17 06:00 18 I&Os I&O- Last 24 Hours up to 6 AM 05/18/17 06:00 Intake Total 0 ml Output Total 0 ml Balance 0 ml Laboratory Data Labs 24H Laboratory Tests 2 05/16/17 23:56: Bedside Glucose (Misc Panel) 115 05/17/17 05:56: Bedside Glucose (Misc Panel) 127H 05/17/17 06:35: Nucleated Red Blood Cells % (auto) 0.0, Immature Platelet Fraction 11.3H CBC/BMP Laboratory Tests 05/17/17 06:35 Red Blood Count 4.34, Mean Corpuscular Volume 90.1, Mean Corpuscular Hemoglobin 30.6, Mean Corpuscular Hemoglobin Concent 34.0, Red Cell Distribution Width 14.4 Impression POD 2 Exploratory Laparotomy, Ileostomy for small bowel obstruction, 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 Will keep epidural and sherwood catheter today I will allow him clear liquids liberally since hes been having ileostomy functiion now. Continue with TPN today. DVT prophylaxis. BMP still pending while rounding but labs yesterday ok Leukocytosis improving Plan / VTE VTE Prophylaxis Ordered?: Yes (TEDs, sequentials, knee high compression) Plan / Urinary Catheter Reason for insertion/continuin: Perioperative (with epidural) CONNOR MCKEON MD May 17, 2017 11:22
[2017-05-17] MEDS: SODIUM CHLORIDE 0.9% INJ 10 ML SYR IV PRN (12:09)
[2017-05-17 12:57] LABS: ANION GAP 3 MEQ/L (8-16); BLOOD UREA NITROGEN 17 MG/DL (7-18); CALCIUM LEVEL 7.7 MG/DL (8.8-10.2); CARBON DIOXIDE LEVEL 30 MEQ/L (21-32); CHLORIDE LEVEL 105 MEQ/L (98-107); CREATININE FOR GFR 0.89 MG/DL (0.70-1.30); GLOMERULAR FILTRATION RATE > 60.0 (>49); GLUCOSE, FASTING 110 MG/DL (80-110); SODIUM LEVEL 138 MEQ/L (136-145)
[2017-05-17 14:00] VITALS: BP 133/74
[2017-05-17 18:00] VITALS: BP 127/73
[2017-05-17] MEDS ORDERED: AMINO AC/ELECTROLYTE/DEX/CALC 2,566 ML IV SCH (18:00)
[2017-05-17 22:00] VITALS: BP 137/74
[2017-05-18 02:00] VITALS: BP 117/67
[2017-05-18 06:00] VITALS: BP 118/73
[2017-05-18] MEDS: SODIUM CHLORIDE 0.9% INJ 10 ML SYR IV SCH ×2 (06:02→18:06)
[2017-05-18] MEDS: HumaLOG INSULIN (NovoLOG) PER UNIT SC SCH ×3 (06:16→18:06)
[2017-05-18 06:24] LABS: MEAN CORPUSCULAR HEMOGLOBIN 30.3 pg (27.0-33.0); MEAN CORPUSCULAR HGB CONC 33.4 g/dl (32.0-36.5); MEAN CORPUSCULAR VOLUME 90.8 fl (80.0-96.0); PLATELET COUNT, AUTOMATED 58 10^3/uL (150-450); RED CELL DISTRIBUTION WIDTH 14.1 % (11.5-14.5); WHITE BLOOD COUNT 8.3 10^3/uL (4.0-10.0)
[2017-05-18 06:43] LABS: ANION GAP 8 MEQ/L (8-16); BLOOD UREA NITROGEN 14 MG/DL (7-18); CALCIUM LEVEL 7.4 MG/DL (8.8-10.2); CARBON DIOXIDE LEVEL 26 MEQ/L (21-32); CHLORIDE LEVEL 106 MEQ/L (98-107); GLOMERULAR FILTRATION RATE > 60.0 (>49); GLUCOSE, FASTING 99 MG/DL (80-110); POTASSIUM SERUM 3.9 MEQ/L (3.5-5.1); SODIUM LEVEL 140 MEQ/L (136-145)
[2017-05-18] MEDS: DOCUSATE SODIUM 100 MG CAP PO SCH ×2 (08:27→20:14)
[2017-05-18] MEDS: amLODIPine 10 MG TAB PO SCH (08:27)
[2017-05-18] MEDS: PANTOPRAZOLE 40MG INJ (PROTONIX) (C9113) IV SCH (08:27)
[2017-05-18] MEDS: ENOXAPARIN 40 MG/0.4 ML SYRINGE (J1650) SC SCH (08:28)
[2017-05-18 10:00] VITALS: BP 116/76
[2017-05-18] MEDS: FENTANYL/BUPIVACAINE/NACL BAG 250 ML EPIDURAL SCH (10:27)
[2017-05-18 14:00] VITALS: BP 126/70
[2017-05-18 18:00] VITALS: BP 133/79
[2017-05-18] MEDS ORDERED: AMINO AC/ELECTROLYTE/DEX/CALC 2,566 ML IV SCH (18:00)
[2017-05-18 22:00] VITALS: BP 133/85
[2017-05-19] VITALS (7 sets, daily range): BP systolic 125–139; BP diastolic 80–87
[2017-05-19] MEDS: HumaLOG INSULIN (NovoLOG) PER UNIT SC SCH ×4 (00:20→17:32)
[2017-05-19] MEDS: FENTANYL/BUPIVACAINE/NACL BAG 250 ML EPIDURAL SCH (03:47)
[2017-05-19] MEDS: SODIUM CHLORIDE 0.9% INJ 10 ML SYR IV SCH ×2 (05:21→17:33)
[2017-05-19 05:45] LABS: MEAN CORPUSCULAR HEMOGLOBIN 33.8 pg (27.0-33.0); MEAN CORPUSCULAR HGB CONC 34.8 g/dl (32.0-36.5); MEAN CORPUSCULAR VOLUME 97.2 fl (80.0-96.0); RED CELL DISTRIBUTION WIDTH 14.6 % (11.5-14.5); WHITE BLOOD COUNT 5.6 10^3/uL (4.0-10.0)
[2017-05-19 05:47] LABS: PLATELET COUNT, AUTOMATED 66 10^3/uL (150-450)
[2017-05-19 05:48] LABS: IMMATURE PLATELET FRACTION % 9.4 % (0.0-10.9)
[2017-05-19] MEDS: SODIUM CHLORIDE 0.9% INJ 10 ML SYR IV PRN (06:24)
[2017-05-19 07:44] LABS: ANION GAP 10 MEQ/L (8-16); BLOOD UREA NITROGEN 13 MG/DL (7-18); CALCIUM LEVEL 7.8 MG/DL (8.8-10.2); CARBON DIOXIDE LEVEL 27 MEQ/L (21-32); CHLORIDE LEVEL 102 MEQ/L (98-107); CREATININE FOR GFR 0.66 MG/DL (0.70-1.30); GLOMERULAR FILTRATION RATE > 60.0 (>49); GLUCOSE, FASTING 100 MG/DL (80-110); POTASSIUM SERUM 3.7 MEQ/L (3.5-5.1); SODIUM LEVEL 139 MEQ/L (136-145)
[2017-05-19] MEDS: DOCUSATE SODIUM 100 MG CAP PO SCH ×2 (08:22→20:47)
[2017-05-19] MEDS: amLODIPine 10 MG TAB PO SCH (08:22)
[2017-05-19] MEDS: PANTOPRAZOLE 40MG TAB (PROTONIX) PO SCH (08:23)
--- NOTE | 2017-05-19 12:51 | IPNPDOC ---
Subjective Date Seen The patient was seen on 05/19/17. Subjective Chief Complaint/HPI The patient is a 61-year-old male admitted with a reason for visit of Acute Kidney Injury,Hyperkalemia. Events since last encounter Patient seen and examined at the bedside. States that he has been able to tolerate a liquid diet, and denies any acute complaints at this time. Objective Physical Examination General Exam: Positive: Alert, Cooperative, No Acute Distress Eye Exam: Negative: Sclera icteric ENT Exam: Positive: Atraumatic, Mucous membr. moist/pink Neck Exam: Negative: JVD Chest Exam: Positive: Clear to auscultation, Normal air movement Heart Exam: Positive: Rate Normal, Regular Rhythm, Normal S1, Normal S2, Negative: Gallops, Murmurs, Rubs Abdomen Exam: Positive: Soft, Other (+Ileostomy) Extremity Exam: Negative: Tenderness, Swelling Skin Exam: Negative: Rash Psych Exam: Positive: Oriented x 3 Assessment /Plan Plan/VTE VTE Prophylaxis Ordered?: Yes (TEDs, sequentials, knee high compression) Plan/Urinary Catheter Reason for insertion/continuin: Perioperative (with epidural) Plan (1) Small bowel obstruction Likely a recurrence of cancer s/p PICC Line 05/14, on TPN as per surgery s/p Exploratory laparotomy with biopsy of omentum and decompression of small bowel, and end ileostomy for diversion on 05/15/17 Patient tolerating a PO liquid diet at this time Will follow up with surgical recommendations (2) TON (acute kidney injury) Status: Resolved Response to Treatment: Stable (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 Had surgery followed by chemotherapy finished in 2015. (4) Stricture of colon Status: Acute Problem Text: Tight stricture was found in the rectosigmoid junction in mar 2017 during colonoscopy . Chance of this being a malignant stricture is high. Work up was being done as any outpatient. (5) Hypertension Status: Chronic (6) Nephrolithiasis Status: Chronic (7) Gout Status: Chronic Response to Treatment: Stable (8) Crohn disease Status: Chronic Response to Treatment: Stable VS, I&O, 24H, Fishbone Vital Signs/I&O Vital Signs Date Time Temp Pulse Resp B/P (MAP) Pulse Ox O2 Delivery O2 Flow Rate FiO2 05/19/17 10:00 97.8 74 18 139/87 (104) 97 Nasal Cannula 2.0 I&O- Last 24 Hours up to 6 AM 05/20/17 06:00 Intake Total 60 ml Output Total 75 ml Balance -15 ml Laboratory Data 24H LABS Laboratory Tests 2 05/18/17 23:43: Bedside Glucose (Misc Panel) 116H 05/19/17 05:29: Nucleated Red Blood Cells % (auto) 0.0, Immature Platelet Fraction 9.4 05/19/17 06:46: 05/19/17 07:15: Anion Gap 10, Glomerular Filtration Rate > 60.0, Blood Urea Nitrogen 13, Creatinine 0.66L, Sodium Level 139, Potassium Level 3.7, Chloride Level 102, Carbon Dioxide Level 27, Calcium Level 7.8L 05/19/17 11:12: Bedside Glucose (Misc Panel) 132H CBC/BMP Laboratory Tests 05/19/17 05:29 Red Blood Count 3.58 L, Mean Corpuscular Volume 97.2 H, Mean Corpuscular Hemoglobin 33.8 H, Mean Corpuscular Hemoglobin Concent 34.8, Red Cell Distribution Width 14.6 H 05/19/17 07:15 Calcium Level 7.8 L ENRIQUE MANSFIELD MD May 19, 2017 12:51
[2017-05-19] MEDS: ACETAMINOPHEN TAB 650MG DOSE (2X325MG) PO PRN (16:28)
--- NOTE | 2017-05-19 16:57 | IPN ---
DATE: 05/19/2017 HISTORY OF PRESENT ILLNESS: The patient is now postoperative day 4 from exploratory laparotomy, which identified extensive metastatic carcinoma within the lower abdomen and pelvis. A diverting ileostomy was created. He has an epidural in place, which was just turned down from 14 to 12 mL per hour. He has total parenteral nutrition (TPN) running through a peripherally inserted central catheter (PICC) line. His ostomy has started to put out some liquid stool and some gas. His Blak[place]wood catheter in place because of the epidural. Vital signs show him to be afebrile for the last 24 hours with a pulse in the 70s and a blood pressure in the 120s to 130 systolic. Intake and output yesterday showed 2700 in with 1625 out, although I note that his weight recorded is down 3 kg today. PHYSICAL EXAMINATION: The patient is alert and oriented. He appears comfortable. Heart exam shows a regular rate and rhythm. The lungs are clear. The abdomen is perhaps mildly distended. He has a dry dressing over his midline incision. His ostomy appliance is slightly loose medially, and there is a small amount of bilious liquid in the bag. The ostomy appears less edematous than it did on this past Friday. He does have some faint, infrequent bowel sounds. Lower extremities show no peripheral edema and intact peripheral pulses. Laboratory studies today show a white count of 5.6 with a hemoglobin of 12, hematocrit 35, and a platelet count of 66,000, which is actually up very slightly from yesterday. Chemistry profile shows normal electrolytes with a BUN of 13, creatinine 0.7, and a glucose of 100. A heparin-induced antibody was ordered this morning. IMPRESSION: Abdominal carcinomatosis with intestinal obstruction, now diverted with a diverting ileostomy. PLAN: The patient's TPN will be continued today, though I will decrease his rate with the next bag to 60 mL per hour. His diet was advanced from clear liquids to full liquids this morning. His epidural and Blackwood catheter will be continued today, but as his diet improves I would anticipate converting him to oral analgesics and stopping the epidural and removing his Blackwood. He requires instruction in ostomy care so that this does not become a discharge-limiting step. I encouraged him to be up out of bed today and to work on ostomy training. PAU
[2017-05-19] MEDS ORDERED: MULTIVITAMIN -ADULT INJECTION 10 ML, CR/CU/SE/MN/ZN INJ 1 ML in AMINO AC/ELECTROLYTE/DE... IV SCH (18:00)
[2017-05-20] MEDS: FENTANYL/BUPIVACAINE/NACL BAG 250 ML EPIDURAL SCH (00:35)
[2017-05-20] MEDS: HumaLOG INSULIN (NovoLOG) PER UNIT SC SCH ×3 (00:38→12:00)
[2017-05-20 02:00] VITALS: BP 123/76
[2017-05-20] MEDS: SODIUM CHLORIDE 0.9% INJ 10 ML SYR IV SCH ×2 (05:43→18:00)
[2017-05-20 06:00] VITALS: BP 137/82
[2017-05-20] MEDS: PANTOPRAZOLE 40MG TAB (PROTONIX) PO SCH (08:00)
[2017-05-20] MEDS: amLODIPine 10 MG TAB PO SCH (08:01)
[2017-05-20] MEDS: DOCUSATE SODIUM 100 MG CAP PO SCH ×2 (08:01→21:25)
[2017-05-20 10:00] VITALS: BP 127/80
[2017-05-20] MEDS: ACETAMINOPHEN TAB 650MG DOSE (2X325MG) PO PRN ×2 (11:50→23:16)
[2017-05-20 14:00] VITALS: BP 144/88
[2017-05-20 18:00] VITALS: BP 139/84
[2017-05-20 22:00] VITALS: BP 133/92
[2017-05-21 02:00] VITALS: BP 120/79
[2017-05-21] MEDS: FENTANYL/BUPIVACAINE/NACL BAG 250 ML EPIDURAL SCH (04:08)
[2017-05-21] MEDS: SODIUM CHLORIDE 0.9% INJ 10 ML SYR IV SCH ×2 (05:56→17:03)
[2017-05-21 06:00] VITALS: BP 123/71
[2017-05-21 06:57] LABS: MEAN CORPUSCULAR HEMOGLOBIN 29.7 pg (27.0-33.0); MEAN CORPUSCULAR HGB CONC 33.6 g/dl (32.0-36.5); MEAN CORPUSCULAR VOLUME 88.4 fl (80.0-96.0); PLATELET COUNT, AUTOMATED 159 10^3/uL (150-450); RED CELL DISTRIBUTION WIDTH 14.1 % (11.5-14.5); WHITE BLOOD COUNT 7.3 10^3/uL (4.0-10.0)
[2017-05-21 07:06] LABS: ANION GAP 9 MEQ/L (8-16); BLOOD UREA NITROGEN 14 MG/DL (7-18); CALCIUM LEVEL 7.8 MG/DL (8.8-10.2); CARBON DIOXIDE LEVEL 30 MEQ/L (21-32); CHLORIDE LEVEL 101 MEQ/L (98-107); CREATININE FOR GFR 0.75 MG/DL (0.70-1.30); GLOMERULAR FILTRATION RATE > 60.0 (>49); GLUCOSE, FASTING 104 MG/DL (80-110); POTASSIUM SERUM 3.9 MEQ/L (3.5-5.1); SODIUM LEVEL 140 MEQ/L (136-145)
--- NOTE | 2017-05-21 08:06 | IPN ---
DATE: 05/20/2017 Patient seen and examined. Tolerating full liquid diet. Has not had a bowel movement, but colostomy is putting out dark liquid. Denies chest pain, pressure, or discomfort. Denies any shortness of breath. Patient currently comfortable. VITAL SIGNS: Temperature 98.5, pulse 106, respirations 18, blood pressure 127/80, pulse oximetry 96% in room air. LABORATORY DATA: From yesterday, WBC 5.6, hemoglobin and hematocrit 12.1/34.8, platelets 66. Chemistry: Sodium 139, potassium 3.7, chloride 102, bicarbonate 27, BUN 13, creatinine 0.66. PHYSICAL EXAMINATION: GENERAL: Patient alert, obese in no acute distress. HEENT: Normocephalic, atraumatic. Moist mucous membranes. NECK: Supple. CARDIAC: Regular S1, S2. ABDOMEN: Soft. Ileostomy in place, draining darkish liquid. Hypoactive bowel sounds. EXTREMITIES: No clubbing, cyanosis, or edema. 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 1. Small-bowel obstruction due to recurrent cancer, adenocarcinoma status post surgery by DR. Morin. Peripherally inserted central catheter (PICC) line with total parenteral nutrition (TPN) as per surgery. Status post exploratory laparotomy, biopsy of omentum and decompression of small bowel with end-ileostomy for diversion. 05/15/2017. Tolerating full liquid diet. 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 Case discussed with Dr. Correa. Will need outpatient followup with oncologist for further treatment and care. 2. Acute kidney injury (TON), resolved. 3. Recurrent mucinous adenocarcinoma of small intestine, initially diagnosed in 2014. Has now finished treatment in 2016. Will need followup with Dr. Correa as soon as possible upon discharge. 4. Stricture of colon. Tight stricture was found on rectosigmoid junction March 2017 during colonoscopy. Chance of being malignant stricture is high. Further followup as outpatient. 5. Hypertension. Continue home medication. 6. Nephrolithiasis. Outpatient followup. 7. Gout. Continue current medication. 8. Crohn's. Further management as per surgery. 9. Gastroesophageal reflux disease (GERD). Continue proton pump inhibitor (PPI). 10. Deep vein thrombosis (DVT) prophylaxis. Sequential compression devices given patient thrombocytopenic. Heparin-induced thrombocytopenia (HIT) workup has been sent. DISPOSITION: As per primary team, Dr. Morin.
[2017-05-21] MEDS: PANTOPRAZOLE 40MG TAB (PROTONIX) PO SCH (08:14)
[2017-05-21] MEDS: ACETAMINOPHEN TAB 650MG DOSE (2X325MG) PO PRN (08:16)
[2017-05-21] MEDS: amLODIPine 10 MG TAB PO SCH (08:16)
[2017-05-21] MEDS: DOCUSATE SODIUM 100 MG CAP PO SCH ×2 (08:17→20:07)
[2017-05-21 10:00] VITALS: BP 138/82
[2017-05-21] MEDS ORDERED: IBUPROFEN 400 MG TAB PO PRN (10:00)
[2017-05-21] MEDS ORDERED: MORPHINE 2 MG/ML 1ML SYRINGE IV PRN (10:00)
[2017-05-21 14:00] VITALS: BP 131/78
--- NOTE | 2017-05-21 15:46 | IPN ---
DATE: 05/21/2017 The patient is seen and examined. No acute events overnight. Tolerating oral, currently on a regular diet with Ensure supplementation. Reported minimal abdominal pain. Learning from the nurses how to manage ileostomy. VITAL SIGNS: Temperature 97.8, pulse 91, respirations 17, blood pressure 138/82, pulse oximetry 96% on two liters nasal cannula. LABORATORY DATA: WBC 7.3, hemoglobin and hematocrit 13.5/40.2, platelets 159. Chemistry: Sodium 140, potassium 3.9, chloride 101, bicarbonate 30, BUN 14, creatinine 0.75. HIT positive. PHYSICAL EXAMINATION: GENERAL: Patient alert, obese in no acute distress. HEENT: Normocephalic, atraumatic. Moist mucous membranes. NECK: Supple. CARDIAC: Regular, S1, S2. ABDOMEN: Soft. Ileostomy in place, Surgical site clean, dry and intact. Ileostomy draining darkish liquid. Hypoactive bowel sounds. EXTREMITIES: No clubbing, cyanosis, or edema. 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 PROBLEMS: 1. Small-bowel obstruction due to recurrent cancer, adenocarcinoma status post surgery by Dr. Morin. Has received peripherally inserted central catheter (PICC) line with total parenteral nutrition (TPN) which has been stopped. Status post exploratory laparotomy, biopsy of omentum, decompression of small bowel and end-ileostomy for diversion on 05/15/2017. Tolerating a regular diet at this time. Pain management as per surgery. Case discussed with Dr. Correa. Will need outpatient followup with oncologist for further treatment. 2. Acute kidney injury (TON), resolved. 3. Recurrent mucinous adenocarcinoma of small intestine, initially diagnosed in 2014. Has finished treatment in 2016. Will need to followup with Dr. Correa as soon as possible upon discharge. 4. Stricture of colon. Tight stricture was found on rectosigmoid junction in March 2017 during colonoscopy. Chance of being malignant stricture is high. Further followup with Dr. Correa. Currently has a diverting ileostomy. 5. Hypertension. Continue home medication. 6. Nephrolithiasis. Continue medication as outpatient. Outpatient followup. 7. Thrombocytopenia. 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 Avoid heparin. 8. Gout. Continue current medication. 9. Crohn's. Further management as per surgery. 10. Gastroesophageal reflux disease (GERD). Continue proton pump inhibitor (PPI). 11. Deep vein thrombosis (DVT) prophylaxis. Sequential compression device. HIT is positive. DISPOSITION: As per Dr. Morin, likely discharge on Friday.
[2017-05-21 18:00] VITALS: BP 117/75
[2017-05-21] MEDS: PERCOCET 5MG/325MG TAB PO PRN (18:49)
[2017-05-21 22:00] VITALS: BP 121/76
[2017-05-22 02:00] VITALS: BP 120/77
[2017-05-22] MEDS: SODIUM CHLORIDE 0.9% INJ 10 ML SYR IV SCH ×2 (05:30→17:33)
[2017-05-22 06:00] VITALS: BP 119/79
[2017-05-22] MEDS: PANTOPRAZOLE 40MG TAB (PROTONIX) PO SCH (09:03)
[2017-05-22] MEDS: DOCUSATE SODIUM 100 MG CAP PO SCH ×2 (09:03→20:48)
[2017-05-22] MEDS: amLODIPine 10 MG TAB PO SCH (09:03)
[2017-05-22 10:00] VITALS: BP 117/76
[2017-05-22 14:00] VITALS: BP 114/75
--- NOTE | 2017-05-22 17:27 | IPNPDOC ---
Text Note Date of Service The patient was seen on 05/22/17. NOTE The patient is seen and examined. No acute events overnight. Tolerating oral, currently on a regular diet with Ensure supplementation. No new complaints PHYSICAL EXAMINATION: GENERAL: Patient alert, obese in no acute distress. HEENT: Normocephalic, atraumatic. Moist mucous membranes. NECK: Supple. CARDIAC: Regular, S1, S2. ABDOMEN: Soft. Ileostomy in place, Surgical site clean, dry and intact. Ileostomy draining darkish liquid. Hypoactive bowel sounds. EXTREMITIES: No clubbing, cyanosis, or edema. 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 PROBLEMS: 1. Small-bowel obstruction due to recurrent cancer, adenocarcinoma status post surgery by Dr. Morin. off TPN Status post exploratory laparotomy, biopsy of omentum, decompression of small bowel and end-ileostomy for diversion on 05/15/2017. Tolerating a regular diet at this time. Pain management as per surgery. Case discussed with Dr. Correa. Will need outpatient followup with oncologist for further treatment. 2. Acute kidney injury (TON), resolved. Blackwood out 3. Recurrent mucinous adenocarcinoma of small intestine, initially diagnosed in 2014. Has finished treatment in 2016. Will need to followup with Dr. Correa as soon as possible upon discharge. 4. Stricture of colon. Tight stricture was found on rectosigmoid junction in March 2017 during colonoscopy. Chance of being malignant stricture is high. Further followup with Dr. Correa. Currently has a diverting ileostomy. 5. Hypertension. Continue home medication. 6. Nephrolithiasis. Continue medication as outpatient. Outpatient followup. 7. Thrombocytopenia. 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 Avoid heparin. 8. Gout. Continue current medication. 9. Crohn's. Further management as per surgery. 10. Gastroesophageal reflux disease (GERD). Continue proton pump inhibitor (PPI). 11. Deep vein thrombosis (DVT) prophylaxis. Sequential compression device. HIT is positive. DISPOSITION: As per Dr. Morin, likely discharge on Friday. VS,Fishbone, I+O VS, Fishbone, I+O Vital Signs Date Time Temp Pulse Resp B/P (MAP) Pulse Ox O2 Delivery O2 Flow Rate FiO2 05/22/17 14:00 98.0 96 17 114/75 (88) 94 Room Air 05/21/17 10:00 I&O- Last 24 Hours up to 6 AM 05/22/17 06:00 Intake Total 1006 ml Output Total 1800 ml Balance -794 ml NALLELY BERNARDO MD May 22, 2017 17:27
[2017-05-22 18:00] VITALS: BP 127/79
[2017-05-22] MEDS: PERCOCET 5MG/325MG TAB PO PRN (20:54)
[2017-05-22 22:00] VITALS: BP 123/80
[2017-05-23 02:00] VITALS: BP 113/73
[2017-05-23] MEDS: SODIUM CHLORIDE 0.9% INJ 10 ML SYR IV SCH (05:32)
[2017-05-23 06:00] VITALS: BP 110/72
[2017-05-23] MEDS ORDERED: PERCOCET PO (08:01)
[2017-05-23 09:00] VITALS: BP 124/81
[2017-05-23] MEDS: amLODIPine 10 MG TAB PO SCH (09:00)
[2017-05-23] MEDS: DOCUSATE SODIUM 100 MG CAP PO SCH (09:09)
[2017-05-23] MEDS: PANTOPRAZOLE 40MG TAB (PROTONIX) PO SCH (09:09)
[2017-05-23 10:00] VITALS: BP 133/81
--- NOTE | 2017-05-23 15:50 | IPNPDOC ---
Text Note Date of Service The patient was seen on 05/23/17. NOTE The patient is seen and examined. No acute events overnight. Tolerating oral, currently on a regular diet with Ensure supplementation. No new complaints PHYSICAL EXAMINATION: GENERAL: Patient alert, obese in no acute distress. HEENT: Normocephalic, atraumatic. Moist mucous membranes. NECK: Supple. CARDIAC: Regular, S1, S2. ABDOMEN: Soft. Ileostomy in place, Surgical site clean, dry and intact. Ileostomy draining darkish liquid. Hypoactive bowel sounds. EXTREMITIES: No clubbing, cyanosis, or edema. 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 PROBLEMS: 1. Small-bowel obstruction due to recurrent cancer, adenocarcinoma status post surgery by Dr. Morin. off TPN Status post exploratory laparotomy, biopsy of omentum, decompression of small bowel and end-ileostomy for diversion on 05/15/2017. Tolerating a regular diet at this time. Pain management as per surgery. Case discussed with Dr. Correa. Will need outpatient followup with oncologist for further treatment. appt 1/ 2. Acute kidney injury (TON), resolved. Blackwood out 3. Recurrent mucinous adenocarcinoma of small intestine, initially diagnosed in 2014. Has finished treatment in 2016. Will need to followup with Dr. Correa as soon as possible upon discharge. appt 1/ 4. Stricture of colon. Tight stricture was found on rectosigmoid junction in March 2017 during colonoscopy. Chance of being malignant stricture is high. Further followup with Dr. Correa. Currently has a diverting ileostomy. 5. Hypertension. Continue home medication. 6. Nephrolithiasis. Continue medication as outpatient. Outpatient followup. 7. Thrombocytopenia. 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 Avoid heparin. 8. Gout. Continue current medication. 9. Crohn's. Further management as per surgery. 10. Gastroesophageal reflux disease (GERD). Continue proton pump inhibitor (PPI). 11. Deep vein thrombosis (DVT) prophylaxis. Sequential compression device. HIT is positive. DISPOSITION: dc by Dr Morin today VS,Araceli, I+O VS, Rulae, I+O Vital Signs Date Time Temp Pulse Resp B/P (MAP) Pulse Ox O2 Delivery O2 Flow Rate FiO2 05/23/17 10:00 98.3 81 20 133/81 (98) 95 Room Air 05/21/17 10:00 I&O- Last 24 Hours up to 6 AM 05/23/17 06:00 Intake Total 1200 ml Output Total 1725 ml Balance -525 ml NALLELY BERNARDO MD May 23, 2017 15:50
--- NOTE | 2017-05-23 22:00 | IPN ---
DATE: 05/21/2017 HISTORY OF PRESENT ILLNESS: The patient is now postop day #6 from his exploratory laparotomy and end ileostomy for widespread lower abdominal and pelvic metastatic disease. His epidural catheter was discontinued early this morning. He appears fairly comfortable at rest in the bed currently. He denies any nausea or vomiting. He has been starting to do some care of his ostomy. Vital signs show that he has been afebrile for over the past 24 hours with a pulse in the 70s to low 90s. His blood pressure is good. Intake and output shows 1580 in and 2250 out yesterday. PHYSICAL EXAMINATION: The patient is alert and oriented. Skin: Is warm and dry. Heart exam shows a regular rate and rhythm. The lungs are clear. The abdomen shows the abdomen to be slightly full. He has bowel sounds present. His midline incision appears to be healing well. The ostomy appears to be slightly less edematous, and there is some liquid stool in the ostomy bag. Calves are nontender. Laboratory studies show a white count of 7 with hemoglobin 13, hematocrit of 40 and a platelet count of 159,000. Chemistry profile shows normal electrolytes, BUN and creatinine with a glucose of 104. IMPRESSION: The patient appears to be making good progress with his (cut off). PLAN: With the epidural now out, we will plan on removing his Blackwood catheter later this morning. He is on a regular diet at this point. I have encouraged him to work toward learning the skills necessary to manage his ileostomy. He seems to be well motivated in this regard. Hopefully we will have him ready to go home in the next day or two. I will start him on some oral analgesics with Percocet and ibuprofen as needed.
--- NOTE | 2017-05-23 22:03 | IPN ---
DATE: 05/20/2017 The patient is now 5 days postop from his exploratory laparotomy for metastatic carcinoma. His ileostomy has started working. He has been tolerating some liquids fairly well. Vital signs show that he has been afebrile for the last 24 hours. His vital signs are otherwise acceptable and stable. Intake and output show that on 05/19/2017, he had 1730 in and 3300 out. PHYSICAL EXAMINATION: The patient is alert and oriented. His skin is warm and dry. Sclerae are anicteric. The abdomen is soft and his ostomy has some bilious fluid within the bag. LABORATORY FINDINGS: The patient had no labs this morning. IMPRESSION: The patient appears to be doing well from his exploratory laparotomy. His ostomy is beginning to function better. He has tolerated some liquids well and was advanced to full liquids, which he has also taken. His total parenteral nutrition (TPN) remains on at this time and the epidural and Blackwood catheter remain in place. PLAN: The patient will be advanced to a regular diet. I will let the TPN run out when the current bag is completed. If he tolerates his diet, I would anticipate that his epidural will be discontinued in the next day or so and the Blackwood catheter can be discontinued then as well. We will continue with ostomy teaching.
--- NOTE | 2017-05-23 23:10 | IPN ---
DATE: 05/22/2017 HISTORY: The patient is now 1 week postop from his exploratory laparotomy and creation of a diverting ileostomy. He has extensive metastatic disease within the lower abdomen and pelvis. His epidural and Blackwood were removed yesterday and he has been doing well since then. He has had very little discomfort and has had only one Percocet tablet yesterday evening for pain. Vital signs: He has been afebrile with a pulse in the low 80s and a good blood pressure. Intake and output shows 1000 in and 1550 out yesterday. PHYSICAL EXAMINATION: The patient is alert and oriented and appears fairly comfortable. Heart exam shows a regular rate and rhythm. The lungs are clear and the abdomen is soft with bowel sounds present. The ostomy is putting out some loose stool. The patient has no new labs today. IMPRESSION: The patient is doing well with good ostomy function and his diet is improving. He has little discomfort. He is learning how to care for his ileostomy. PLAN: I anticipate the patient will be ready for discharge on 05/23. He will continue his ostomy teaching today. He has been up walking. He is taking a diet well. We will request a visiting nurse referral. He should followup with Dr. Correa in the medical oncology office following discharge to determine what, if any treatment may be appropriate. He will need to followup with me in another couple of weeks.
--- NOTE | 2017-05-27 18:44 | IPN ---
DATE: 05/23/2017 The patient is now 8 days postoperative from his exploratory laparotomy with findings of metastatic carcinoma and creation of an ileostomy. He has done well and is tolerating a diet and learning care of his stoma. Vitals signs show that his temperature has been afebrile over the last 24 hours. His pulse is in the 70s to low 80s, and his blood pressure is good. Intake and output reveal that he had 1000 in yesterday with 1875 out. His weight has come down commensurate with his mobilization of his third-space fluid, and he is back down to about his admission weight now. PHYSICAL EXAMINATION: The patient is alert and appears comfortable. Heart exam shows a regular rate and rhythm, and the lungs are clear. The abdomen is nondistended and soft with bowel sounds present. His stoma appears pink and viable with some stool in the bag. His incision is healing well. IMPRESSION: The patient is doing well, now 8 days postoperative from his exploratory laparotomy and ileostomy. PLAN: The patient and I discussed his potential need for pain medication. I will send in a prescription for some Percocet that he can take on an as-needed basis. He has only taken a couple of these over the last 2 days. He will follow a regular diet. We have arranged a public health nurse to visit and assist him with his ostomy care going forward. We will remove his surgical earnest before discharge today. I will plan on seeing him back within the next couple weeks. We will also need to arrange a visit with Dr. Correa of medical oncology to assess his status and potential for treatment. He is to call my office for any problems.
== END 2017-05-23 12:37 | disposition home health service (06) | DRG 330 ==
LOC: M ED 12:37 → M ED INP 16:40 → M MSPAV 20:00
PROVIDERS: ADMIT Hospitalist; ATTEND Surgery
PROC: 02HV33Z Insertion of Infusion Device into Superior Vena Cava, Percutaneous Approach (ICD-10-PCS; 2017-05-14)
PROC: 3E0336Z Introduction of Nutritional Substance into Peripheral Vein, Percutaneous Approach (ICD-10-PCS; 2017-05-14)
PROC: 0DBU0ZX Excision of Omentum, Open Approach, Diagnostic (ICD-10-PCS; 2017-05-15)
PROC: 0D1B0J4 Bypass Ileum to Cutaneous with Synthetic Substitute, Open Approach (ICD-10-PCS; principal; 2017-05-15 07:30)
DX: C78.6 Secondary malignant neoplasm of retroperitoneum and peritoneum (principal); N17.9 Acute kidney failure, unspecified; K50.90 Crohn's disease, unspecified, without complications; C78.4 Secondary malignant neoplasm of small intestine; K59.00 Constipation, unspecified; E87.6 Hypokalemia; I10 Essential (primary) hypertension; M10.9 Gout, unspecified; E86.0 Dehydration; Z90.49 Acquired absence of other specified parts of digestive tract; Z79.899 Other long term (current) drug therapy; Z92.21 Personal history of antineoplastic chemotherapy; Z87.442 Personal history of urinary calculi

== ENCOUNTER → 2017-05-15 | Outpatient (REF) | payer MEDICARE, MEDICAID | LOC: M LAB REF 07:55 | DX: C79.9 Secondary malignant neoplasm of unspecified site (principal) | CPT/HCPCS: 88300 ==

== ENCOUNTER → 2017-05-16 | Outpatient (CLI) | payer MEDICARE, MEDICAID ==
[~2017-05-16] MED LIST changes: -/AMLO25TA PO; -/PANT40TA PO; -/TAMS4CA PO; -ALDA25TA PO; -ASPI81TA85 PO; -BUDE3CAP PO; -DIPH25CA PO; -HYDR12.55 PO; +LIDOCAINE 2% W/EPIN INJ 20ML **PRES FREE As Ordered; -NEUR300C PO; -PENT500C PO; -PERC5TAB12 PO; -PERCOCET PO; -POTAGRA83 PO; -TYLE325T5 PO; -ZYLO300T PO; -ZYLO300T4 PO; -[UNRECOGNIZED DRUG - CODE] PO
== END ==
LOC: M RAD 10:00
DX: C78.6 Secondary malignant neoplasm of retroperitoneum and peritoneum (principal); Z53.9 Procedure and treatment not carried out, unspecified reason

== ENCOUNTER → 2017-06-12 | Outpatient (REF) | payer MEDICARE, MEDICAID ==
[2017-06-12 17:25] LABS: INR 1.09; PARTIAL THROMBOPLASTIN TIME 30.5 SECONDS (26.8-37.9); PROTHROMBIN TIME 14.3 SECONDS (12.4-14.5)
[2017-06-13 17:38] LABS: CARCINOEMBRYONIC ANTIGEN 149.6 NG/ML (<2.5)
== END ==
LOC: M LAB REF 16:57
DX: C18.9 Malignant neoplasm of colon, unspecified (principal); Z79.01 Long term (current) use of anticoagulants
CPT/HCPCS: 82378

== ENCOUNTER 2017-06-29 11:41 | Inpatient (IN) | payer MEDICARE, MEDICAID, OTHER ==
[2017-06-29 12:43] LABS: BASO % 0.2 % (0.0-1.0); HEMOGLOBIN 16.8 g/dl (14.0-18.0); IMMATURE GRANULOCYTE # 0.3 10^3/uL (0-0); IMMATURE GRANULOCYTE % 1.2 % (0-0); LYMPH # 0.6 10^3/uL (1.5-4.5); LYMPH % 2.8 % (24.0-44.0); MEAN CORPUSCULAR HEMOGLOBIN 29.3 pg (27.0-33.0); MEAN CORPUSCULAR HGB CONC 34.3 g/dl (32.0-36.5); MEAN CORPUSCULAR VOLUME 85.5 fl (80.0-96.0); MONO % 4.6 % (0.0-5.0); NEUTROPHILS # 20.3 10^3/uL (1.8-7.7); NEUTROPHILS % 91.2 % (36.0-66.0); PLATELET COUNT, AUTOMATED 263 10^3/uL (150-450); RED BLOOD COUNT 5.73 10^6/uL (4.30-6.10); RED CELL DISTRIBUTION WIDTH 14.9 % (11.5-14.5); WHITE BLOOD COUNT 22.2 10^3/uL (4.0-10.0)
[2017-06-29 12:53] LABS: ANION GAP 30 MEQ/L (8-16); BLOOD UREA NITROGEN 108 MG/DL (7-18); CALCIUM LEVEL 10.7 MG/DL (8.8-10.2); CARBON DIOXIDE LEVEL 29 MEQ/L (21-32); CHLORIDE LEVEL 68 MEQ/L (98-107); CPK CREATINE PHOSPHOKINASE 72 U/L (39-308); CREATININE FOR GFR 7.17 MG/DL (0.70-1.30); GLOMERULAR FILTRATION RATE 8.4 (>49); GLUCOSE, FASTING 189 MG/DL (70-100); POTASSIUM SERUM 3.8 MEQ/L (3.5-5.1); SODIUM LEVEL 127 MEQ/L (136-145); TROPONIN I 0.02 NG/ML (< 0.10)
[2017-06-29 12:58] LABS: CK-MB VALUE MASS 1.6 NG/ML (0.0-3.6); MB/CK RELATIVE INDEX 2.22 (< OR =4)
[2017-06-29] MEDS: ONDANSETRON 4MG/2ML VIAL (J2405) IV ×3 (13:13→19:38)
[2017-06-29] MEDS: NS 1,000 ML IV ×3 (13:45→22:04)
[2017-06-29] MEDS: METOCLOPRAMIDE INJ 10MG/2ML VIAL (J2765) IV ×2 (16:56→23:26)
[2017-06-29 18:40] LABS: ESTIMATED AVERAGE GLUCOSE 120 MG/DL (60-110); HEMOGLOBIN A1c 5.8 %
[2017-06-29] MEDS: ACETAMINOPHEN TAB 650MG DOSE (2X325MG) PO (18:44)
[2017-06-29] MEDS: HEPARIN SOD (PORCINE) 5000 UNITS/ML VIAL SC (22:00)
[2017-06-29] MEDS: MORPHINE 2 MG/ML 1ML SYRINGE IV (23:26)
[2017-06-30] MEDS: ONDANSETRON 4MG/2ML VIAL (J2405) IV ×2 (01:55→08:14)
[2017-06-30] MEDS: MORPHINE 2 MG/ML 1ML SYRINGE IV ×3 (03:26→14:23)
[2017-06-30] MEDS: NS 1,000 ML IV ×5 (04:13→09:50)
[2017-06-30 05:20] LABS: HEMATOCRIT 42.9 % (42.0-52.0); HEMOGLOBIN 14.9 g/dl (14.0-18.0); MEAN CORPUSCULAR HEMOGLOBIN 29.3 pg (27.0-33.0); MEAN CORPUSCULAR HGB CONC 34.7 g/dl (32.0-36.5); MEAN CORPUSCULAR VOLUME 84.4 fl (80.0-96.0); PLATELET COUNT, AUTOMATED 202 10^3/uL (150-450); RED BLOOD COUNT 5.08 10^6/uL (4.30-6.10); RED CELL DISTRIBUTION WIDTH 14.9 % (11.5-14.5); WHITE BLOOD COUNT 22.7 10^3/uL (4.0-10.0)
[2017-06-30 05:46] LABS: ALBUMIN 3.3 GM/DL (3.2-5.2); ANION GAP 24 MEQ/L (8-16); BLOOD UREA NITROGEN 121 MG/DL (7-18); CALCIUM LEVEL 9.2 MG/DL (8.8-10.2); CARBON DIOXIDE LEVEL 29 MEQ/L (21-32); CHLORIDE LEVEL 75 MEQ/L (98-107); CREATININE FOR GFR 7.75 MG/DL (0.70-1.30); GLOMERULAR FILTRATION RATE 7.6 (>49); GLUCOSE, FASTING 187 MG/DL (70-100); PHOSPHORUS LEVEL 8.5 MG/DL (2.5-4.9); POTASSIUM SERUM 3.8 MEQ/L (3.5-5.1); SODIUM LEVEL 128 MEQ/L (136-145); T UPTAKE 35 % (33-40); THYROXINE (T4) 5.7 UG/DL (4.5-12.0)
[2017-06-30] MEDS: METOCLOPRAMIDE INJ 10MG/2ML VIAL (J2765) IV (05:57)
[2017-06-30] MEDS: HEPARIN SOD (PORCINE) 5000 UNITS/ML VIAL SC (05:58)
[2017-06-30 07:44] LABS: LACTIC ACID SEPSIS PROTOCOL 7.7 MMOL/L (0.4-2.0)
[2017-06-30 07:44] LABS: C REACTIVE PROTEIN QUANTITATIV 6.31 MG/DL (0.00-0.30); CK-MB VALUE MASS 2.9 NG/ML (0.0-3.6); CPK CREATINE PHOSPHOKINASE 79 U/L (39-308); MB/CK RELATIVE INDEX 3.67 (< OR =4); TROPONIN I 0.09 NG/ML (< 0.10)
[2017-06-30] MEDS: PERCOCET 5MG/325MG TAB PO ×2 (08:15→12:32)
[2017-06-30 09:03] LABS: ERYTHROCYTE SEDIMENTATION RATE 19 mm/hr (0-20)
[2017-06-30] MEDS: PROCHLORPERAZINE 5 MG TAB (S0183) PO (10:31)
[2017-06-30] MEDS ORDERED: LORazepam 1 MG TAB PO (14:30)
[2017-06-30] MEDS ORDERED: MORPHINE 2 MG/ML 1ML SYRINGE IV (14:30)
[2017-06-30] MEDS ORDERED: MORPHINE 10MG/0.5ML ORAL CONCENTRATE SOLUTION U/D SL (14:30)
[2017-06-30] MEDS ORDERED: SCOPOLAMINE 1MG TRANSDERMAL PATCH TOP (14:30)
[2017-06-30] MEDS: LORazepam 2 MG/ML VIAL (J2060) IV (14:49)
== END 2017-06-30 15:54 | disposition expired | DRG 374 ==
LOC: M ED 11:41 → M ED INP 14:28 → M PCU 15:54
DX: C18.8 Malignant neoplasm of overlapping sites of colon (principal); K63.1 Perforation of intestine (nontraumatic); N17.9 Acute kidney failure, unspecified; E87.1 Hypo-osmolality and hyponatremia; K50.90 Crohn's disease, unspecified, without complications; E87.2 Acidosis; R11.2 Nausea with vomiting, unspecified; E86.0 Dehydration; I10 Essential (primary) hypertension; M10.9 Gout, unspecified; I95.1 Orthostatic hypotension; Z51.5 Encounter for palliative care; Z66 Do not resuscitate; Z93.2 Ileostomy status; Z79.899 Other long term (current) drug therapy